=== PATIENT | female | born 1970 | race Caucasian/White ===

== ENCOUNTER → 2017-06-19 | Outpatient (CLI) | payer OTHER ==
[2017-06-19 17:54] LABS: BASO % 0.9 %; BASO ABS # 0.09 K/uL (0-0.2); EOS % 7.1 %; EOS ABS # 0.67 K/uL (0-0.5); HEMATOCRIT 35.5 % (37-47); HEMOGLOBIN 12.1 g/dL (12.0-16.0); IG# 0.02 K/uL (0.00-0.02); LYMPH % 33.5 %; LYMPH ABS # 3.18 K/uL (1.2-3.4); MEAN CELL VOLUME 93.9 fL (80-100); MEAN CORPUSCULAR HGB CONC 34.1 g/dl (32-36); MEAN PLATELET VOLUME 9.4 fL (7.4-10.4); MONO % 7.7 %; MONO ABS # 0.73 K/uL (0.11-0.59); NEUT % 50.6 %; NEUT ABS # 4.81 K/uL (1.4-6.5); PLATELET COUNT 380 K/uL (130-400); RED CELL DISTRIBUTION WIDTH CV 12.8 % (11.5-14.5); RED CELL DISTRIBUTION WIDTH SD 43.7 fL (36.4-46.3)
[2017-06-19 18:15] LABS: ALBUMIN 3.9 gm/dl (3.4-5.0); ALKALINE PHOSPHATASE 66 U/L (45-117); ALT/SGPT 18 U/L (12-78); AST/SGOT 17 U/L (15-37); TOTAL PROTEIN 6.9 gm/dl (6.4-8.2)
== END | disposition home or self-care (01) ==
LOC: C.LABPBG 14:08
PROVIDERS: ATTEND Family Medicine
DX: F11.20 Opioid dependence, uncomplicated (principal)

== ENCOUNTER → 2017-08-20 | Outpatient (CLI) | payer OTHER ==
[~2017-08-20] VITALS: Ht 162.6 cm; Wt 48.4 kg
[2017-08-20 16:32] VITALS: BP 156/88; PULSE 73; Ht 162.6 cm; Wt 48.4 kg
== END | disposition home or self-care (01) ==
LOC: C.NEUR 13:44
PROVIDERS: ATTEND Internal Medicine Pulmonary Disease
DX: G47.10 Hypersomnia, unspecified (principal); G47.8 Other sleep disorders; R44.2 Other hallucinations; G47.411 Narcolepsy with cataplexy

== ENCOUNTER 2024-04-26 09:48 | Observation (INO) ==
--- OUTSIDE RECORDS SUMMARY | 2024-04-26 09:55 | External Medical Summary | Continuity of Care Document ---
Author Name Unknown Organization [address] Address [address] [place] [address] [place], [place] [id number] Care Team Providers Care Gis Developer Name Role Phone VeronikaEdmundo Primary Care Physician [phone] [id number] Date(s): 02/14/24 - 02/14/[address] [place] [id number] [facility] [address] [place] [address] [phone] Encounter Diagnosis COPD exacerbation(Discharge Diagnosis) - 02/14/24 Discharge Disposition: Home or Self Care Attending Physician: Jeanne Paiz DO, Mariana Annette Referring Physician: Jeanne Paiz DO, Mariana Annette Allergies, Adverse Reactions, Alerts Substance Criticality Severity Reaction Reaction Severity Status ibuprofen swelling where ever pill touches- feels like acid Active penicillins swelling Active Paxil rash Active PROzac whole body swel ls swelling in throat Active BuSpar Heart stopped Active HYDROcodone rash swelling Acti ve Assessment and Plan Extracted from: Title:Office Visit Note Author:Jeanne Paiz DO, Mariana Annette Date:02/14/24 1.COPD exacerbation Will treat with azithromycin and prednisone for 5 days CXR ordered Continue inhalers Immunizations Given and Recorded Vaccine Date Status Refusal Reason influenza virus vaccine, inactivated 01/08/23 Give n influenza virus vaccine, inactivated 1 02/15/22 Gi cam influenza virus vaccine, inactivated 02/04/20 [place] rded influenza virus vaccine, inactivated 12/22/16 [place] rded pneumococcal 23-valent vaccine 02/04/20 Recorded tetanus/diphtheria/pertuss, acel (Tdap) 04/15/09 R ecorded 1Result Comment: diana aceves [facility] Medications acetaminophen 650 mg oral tablet, extended release Start: 01/13/24 3:39:00 PM EDT, 1 tab, PO, q8h, Disp# 50 tab, Refills: 4, PRN: as needed for pain, Pharmacy: [place] [id number] Start Date: 01/13/24 Stop Date: 03/23/24 Status: Ordered albuterol CFC free 90 mcg/inh MDI Start: 12/17/23 10:44:00 AM EDT, 2 puff, inhaled, q4h, Disp# 18 g, PRN: as needed for wheezing, Pharmacy: [facility] #[id number] Start Date: 12/17/23 Status: Ordered amLODIPine 5 mg oral tablet Start: 07/30/23 4:27:00 PM EDT, 1 tab, PO, Daily, Disp# 90 tab, Refills: 1, Pharmacy: [place] [id number] Start Date: 07/30/23 Stop Date: 01/26/24 Status: Ordered ARIPiprazole 10 mg oral tablet Start: 03/21/23 11:21:00 AM EST, 1 tab, PO, Daily Start Date: 03/21/23 Status: Ordered Atrovent MDI 17 mcg/inh HFA Start: 09/17/23 10:57:00 AM EDT, 2 puff, inhaled, q6h, Disp# 12.9 g, Refills: 5, Pharmacy: [place] [id number] Start Date: 09/17/23 Status: Ordered Azithromycin 5 Day Dose Pack 250 mg oral tablet Start: 02/14/24 1:53:00 PM EDT, See Instructions, Disp# 6 tab, as directed on package labeling, Pharmacy: [facility] #[id number] Start Date: 02/14/24 Status: Ordered biotin Start: 01/06/24 8:48:00 AM EDT Start Date: 01/06/24 Status: Ordered Centrum Start: 01/06/24 8:48:00 AM EDT Start Date: 01/06/24 Status: Ordered Cozaar 100 mg oral tablet Start: 01/13/24 3:39:00 PM EDT, 1 tab, PO, Daily, Disp# 90 tab, Refills: 1, Pharmacy: [place] [id number] Start Date: 01/13/24 Stop Date: 07/11/24 Status: Ordered D3 Start: 01/06/24 8:48:00 AM EDT Start Date: 01/06/24 Status: Ordered escitalopram 5 mg oral tablet Start: 08/16/23 8:10:00 AM EDT, 1 tab, PO, Daily Start Date: 08/16/23 Status: Ordered famotidine 20 mg oral tablet Start: 01/02/24 12:57:00 PM EDT, 2 tab, PO, Daily, Disp# 60 tab, Refills: 4, Pharmacy: [place] [id number] Start Date: 01/02/24 Status: Ordered ferrous sulfate 325 mg (65 mg elemental iron) oral tablet Start: 11/01/23 12:09:00 PM EDT, See Instructions, Disp# 30 tab, Refills: 5, TAKE 1 TABLET BY MOUTH EVERY DAY, Pharmacy: [facility] [id number] Start Date: 11/01/23 Status: Ordered fexofenadine 180 mg oral tablet Start: 05/17/23 4:24:00 PM EST, 1 tab, PO, Daily, Disp# 90 tab, Refills: 3, Pharmacy: [facility] [id number] Start Date: 05/17/23 Status: Ordered Flonase 50 mcg/inh nasal spray Start: 11/18/23 5:40:00 PM EDT, 1 spray, each nostril, Daily, Disp# 15.8 mL, Refills: 3, Pharmacy: [facility] [id number] Start Date: 11/18/23 Stop Date: 03/17/24 Status: Ordered folic acid 1 mg oral tablet Start: 04/02/22 4:41:00 PM EST, 1 tab, PO, Daily, Disp# 30 tab, Refills: 3, TAKE 1 TABLET (1 MG) BYMOUTH DAILY, Pharmacy: [facility]/pharmacy #[id number] Start Date: 04/02/22 Status: Ordered gabapentin 600 mg oral tablet Start: 12/12/23 1:42:00 PM EDT, 1 tab, PO, bid, Disp# 60 tab, Refills: 3, Pharmacy: [facility] [place] [id number] Start Date: 12/12/23 Stop Date: 04/10/24 Status: Ordered inhaler spacer Start: 04/20/22 7:53:00 PM EST, See Instructions, Disp# 1 each, Use as directed with albuterol inhaler, Pharmacy: [facility]/pharmacy #[id number] Start Date: 04/20/22 Status: Ordered lamoTRIgine 100 mg oral tablet Start: 11/08/23 11:22:00 AM EDT, 1 tab, PO, bid, Disp# 60 tab, Refills: 3, TAKE 1 TABLET BY MOUTH TWICE A DAY, Pharmacy: [place] [id number] Start Date: 11/08/23 Status: Ordered lidocaine 3% topical cream Start: 02/05/24 11:29:00 AM EDT, 1 appl, topical, bid, Disp# 28.35 g, Refills: 3, PRN: pain, Pharmacy: [place] [id number] Start Date: 02/05/24 Stop Date: 04/01/24 Status: Ordered Medical Marijuana Start: 02/15/22 8:59:00 AM EDT Start Date: 02/15/22 Status: Ordered methylphenidate Start: 02/15/22 8:44:00 AM EDT, 20 mg =, PO, qAM, Refills: 0 Start Date: 02/15/22 Status: Ordered methylphenidate 5 mg oral tablet Start: 02/15/22 8:44:00 AM EDT, 1 tab, PO, qPM, Refills: 0 Start Date: 02/15/22 Status: Ordered omeprazole 40 mg oral delayed release capsule Start: 01/22/17 1:34:00 PM EDT, 1 cap, PO, Daily, Disp# 90 cap, Refills: 3, fax to [phone] Start Date: 01/22/17 Status: Ordered [id number] oral powder for reconstitution Start: 01/10/24 3:25:00 PM EDT, See Instructions, Disp# 510 g, Refills: 3, DISSOLVE 17 GRAMS IN 8OZ OF LIQUID AND DRINK daily as needed for constipation, PRN: constipation, Pharmacy: [facility]/pharmacy #[id number] Start Date: 01/10/24 Status: Ordered predniSONE 20 mg oral tablet Start: 02/14/24 1:53:00 PM EDT, 1 tab, PO, Daily, Disp# 5 tab, [id number] Start Date: 02/14/24 Stop Date: 02/19/24 Status: Ordered Senna S 50 mg-8.6 mg oral tablet Start: 01/13/24 3:39:00 PM EDT, 2 tab, PO, qhs, Disp# 30 tab, Refills: 2, PRN: constipation, Pharmacy: [facility] [id number] Start Date: 01/13/24 Status: Ordered Suboxone 8 mg-2 mg sublingual tablet Start: 01/02/17 10:26:00 AM EDT, 1 tab, SL, Daily Start Date: 01/02/17 Status: Ordered sucralfate 1 g oral tablet Start: 11/01/23 12:09:00 PM EDT, 1 tab, PO, ac and hs, Disp# 120 tab, Refills: 2, Pharmacy: [facility] [id number] Start Date: 11/01/23 Stop Date: 01/30/24 Status: Ordered triamcinolone 0.025% topical ointment Start: 03/01/22 4:26:00 PM EST, 1 appl, topical, bid, Disp# 60 g, apply a thin film to affected area, Pharmacy: [facility]/pharmacy #[id number] Start Date: 03/01/22 Stop Date: 03/15/22 Status: Ordered Mental Status 02/14/24 Barriers to Learning one year None evide nt Mandatory Health Literacy Documentation Yes Health Literacy Communication Barriers N ever Primary Language Peruvian Problem List Condition Confirmation Course Effective Dates Status Health St atus Informant Bipolar disorder Confirmed Active CKD (chronic kidney disease) stage 2, GFR 60-89 ml/min Confirmed Active Generalized pain Confirmed Active Hx of migraine headaches Confirmed Active Hx of pulmonary emphysema Confirmed Active Hypertension Confirmed Active 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 Confirmed Active Peripheral neuropathy Confirmed Active Seizure disorder Confirmed Active Tobacco user Confirmed Active Diagnosis Diagnosis Type Effective Dates Health Status Clinical Service Informant COPD exacerbation Discharge Diagnosis 02/14/24 Non-Specified Procedures Procedure Date Related Diagnosis Body Site Status Colonoscopy 1 06/25/23 Completed US Carotid Duplex Bilateral 2 02/11/17 Completed CXR - Chest X-ray 3 12/24/16 Compl eted Mammogram - screening 4 10/10/16 C ompleted Mammogram - screening 5 12/11/13 C ompleted ULTRASOUND BREAST LIMITED 6 12/11/13 Completed Endoscopy 2013 Completed Mammogram - screening 2010 Com pleted Colonoscopy 8 04/15/09 Completed PAP test date 2007 Completed Carpal tunnel release Com pleted Hysterectomy and bilateral salpingo-oophorectomy sample Com pleted Leg fracture 9 Completed 1normal repeat in 10 years 2Minima lplaque formation. No hemodynamically significant stenosis found. 3normal 4The breasts are heterogeneously dense, which may obscure small masses. Normal breasts without evidence for malignancy. 5No mammographic evidence for malignancy. However, the patient reports palpable abnormality in the left breast for which sonography is recommended. Subsequent left breeast sonography reveals mildly prominent left axillary lymph nodes without suspicious features. The likely accounts for the palpable abnormality. 6Mildly prominent left axillary lymph nodes, without suspicious sonographic features, likely accounting for the palpable abnormality. No suspicious mammographic findings are present. 7WNL [id number] 9Right Leg Broken-Rods placed. Vital Signs Most recent to oldest [Reference Range]: 1 Patient Weight 51.2 kg (02/14/24 1:34 PM) Temperature [36.5-37.9 DegC] 37.1 DegC (02/14/24 1:34 PM) Respiratory Rate 20 br/min (02/14/24 1:34 PM) Blood Pressure 102/72mmHg (02/14/24 1:34 PM) Cuff Pulse Pressure 30 mmHg (02/14/24 1:34 PM) Social History Social History Type Response Tobacco Current every day sm oker, Cigarettes, 10 per day. Smoking Status Current every day li ght smoker Sex Female Sex Representation Female (finding) FCM Outpt Note * Jeanne Paiz DO, Mariana Annette: PERFORM Event Display: FCM Outpt Note Authored Date: Chief Complaint 3mo f/u, has cough/congestion, SOB/wheezing x 5 days. Wants flu inj if dr agrees d/t illness. History of Present Illness Initial visit was for chronic condition management but patient acutely ill. Went to a [employer] parade last week and started having symptoms 6 days ago, endorses coughandwheezing, orthopnea. Has been sleeping sitting up. States she gets coughing spells that cause her to vomit and black out at times. States her breathing is worse in the evening. using albuterol BID, states she is using atrovent every hour. Has been taking mucinex. she is on racheal and flonase states she also has night sweats, chills. Physical Exam Vitals & Measurements T:37.1C RR:20 BP:102/72 SpO2:95% WT:51.200kg(Dosing) WT:51.2kg PHQ2 Data(Data Documented on:02/14/2024 13:33) Emotional health assessment NEGATIVE General: _Alert and oriented, No acute distress, non-toxic HEENT: _ Normocephalic, TM clear, Nl gross hearing, moist oral mucosa, mild pharyngeal erythema_ Cardiovascular: _Normal rate, Regular rhythm, No murmur, No gallop. Respiratory: _Lungs are clear to auscultation, Respirations are non-labored, Breath sounds are equal Assessment/Plan 1.COPD exacerbation Will treat with azithromycin and prednisone for 5 days CXR ordered Continue inhalers Attestation Time spent: Pre-visit planning: _5 Rcpm-qs-ltxs visit: _21 Post-visit (orders/documentation/coordination of care):5 Total visit time: _31 Problem List/Past Medical History Ongoing Bipolar disorder CKD (chronic kidney disease) stage 2, GFR 60-89 ml/min Generalized pain Hx of migraine headaches Hx of pulmonary emphysema Hypertension Myxomatous mitral valve Opioid use disorder in remission Peripheral neuropathy Seizure disorder Tobacco user Procedure/Surgical History Colonoscopy| Service Date: 06/25/2023US Carotid Duplex Bilateral| Service Date: 02/11/2017CXR - Chest X-ray| Service Date: 12/24/2016Mammogram - screening| Service Date: 10/10/2016ULTRASOUND BREAST LIMITED| Service Date: 12/11/2013Mammogram - screening| Service Date: 12/11/2013Endoscopy| Service Date: 2013Mammogram - screening| Service Date: 2010Colonoscopy| Service Date: 04/15/2009PAP test date| Service Date: 2007Le fractureCarpal tunnel releaseHysterectomy and bilateral salpingo- oophorectomy sample Medications acetaminophen(acetaminophen 650 mg oral tablet, extended release), 650 mg= 1 tab, PO, q8h, PRN, 4 refills albuterol(albuterol CFC free 90 mcg/inh MDI), 2 puff, inhaled, q4h, PRN amLODIPine(amLODIPine 5 mg oral tablet), 5 mg= 1 tab, PO, Daily, 1 refills ARIPiprazole(ARIPiprazole 10 mg oral tablet), 10 mg= 1 tab, PO, Daily azithromycin(Azithromycin 5 Day Dose Pack 250 mg oral tablet), See Instructions biotin buprenorphine-naloxone(Suboxone 8 mg-2 mg sublingual tablet), 1 tab, SL, Daily cannabis(Medical Marijuana) cholecalciferol(D3) docusate-senna(Senna S 50 mg-8.6 mg oral tablet), 2 tab, PO, qhs, PRN, 2 refills escitalopram(escitalopram 5 mg oral tablet), 5 mg= 1 tab, PO, Daily famotidine(famotidine 20 mg oral tablet), 2 tab, PO, Daily ferrous sulfate(ferrous sulfate 325 mg (65 mg elemental iron) oral tablet), See Instructions, 5 refills fexofenadine(fexofenadine 180 mg oral tablet), 180 mg= 1 tab, PO, Daily, 3 refills fluticasone nasal(Flonase 50 mcg/inh nasal spray), 1 spray, each nostril, Daily, 3 refills folic acid(folic acid 1 mg oral tablet), 1 mg= 1 tab, PO, Daily, 3 refills gabapentin(gabapentin 600 mg oral tablet), 600 mg= 1 tab, PO, bid, 3 refills inhalation accessory(inhaler spacer), See Instructions ipratropium(Atrovent MDI 17 mcg/inh HFA), 2 puff, inhaled, q6h, 5 refills lamoTRIgine(lamoTRIgine 100 mg oral tablet), 100 mg= 1 tab, PO, bid, 3 refills lidocaine topical(lidocaine 3% topical cream), 1 appl, topical, bid, PRN, 3 refills losartan(Cozaar 100 mg oral tablet), 100 mg= 1 tab, PO, Daily, 1 refills methylphenidate(methylphenidate 5 mg oral tablet), 5 mg= 1 tab, PO, qPM methylphenidate, 20 mg, PO, qAM multivitamin with minerals(Centrum) omeprazole(omeprazole 40 mg oral delayed release capsule), 40 mg= 1 cap, PO, Daily, 3 refills polyethylene glycol 3350([id number] oral powder for reconstitution), See Instructions, PRN, 3 refills predniSONE(predniSONE 20 mg oral tablet), 20 mg= 1 tab, PO, Daily sucralfate(sucralfate 1 g oral tablet), 1 g= 1 tab, PO, ac and hs, 2 refills triamcinolone topical(triamcinolone 0.025% topical ointment), 1 appl, topical, bid Allergies BuSparHeart stopped HYDROcodonerash swelling PROzacwhole body swells, swelling in throat Paxilrash ibuprofenswelling where ever pill touches- feels like acid penicillinsswelling Social History Smoking Status Current every day light smoker Alcohol - Denies Alcohol Use Exercise Times per week:Daily Exercise type:Walking Tobacco Use:Current every day smoker Type:Cigarettes Tobacco use per day:10 Family History Alcohol abuse: PGF. Alcoholism: Father. Breast cancer: MGM. Diabetes mellitus type 1: MGM and PGF. Glaucoma: Mother. Heart attack: Father, MGM and PGM. Hypertension: Mother, Father, MGF, MGM, PGF and PGM. Stroke.: Father, MGF, MGM and PGF. Health Status Family Member(s) Immunizations Vaccine Date Status influenza virus vaccine, inactivated 01/08/2023 Given influenza virus vaccine, inactivated 02/15/2022 Given Comments : diana aceves cma pneumococcal 23-valent vaccine 02/04/2020 Recorded influenza virus vaccine, inactivated 02/04/2020 Recorded influenza virus vaccine, inactivated 12/22/2016 Recorded tetanus/diphtheria/pertuss, acel (Tdap) 04/15/2009 Recorded Recommendations Health Maintenance Pending(in the next year) OverDue Cervical Cancer Screening due07/14/10nd every 3year Breast Cancer Screening due10/11/18and every 731day Adult Influenza Vaccine due10/13/23and every 1year Due Adult COVID-19 Vaccination due02/14/24Unknown Frequency Adult Social Determinants of Health Screening due02/14/24Unknown Frequency Adult Tdap/Td Vaccine due02/14/24Unknown Frequency Pneumococcal Vaccine Adults and Adolescents with Chronic Illness due02/14/24One-time only Shingles Vaccine due02/14/24One-time only Satisfied(in the past 1 year) Satisfied Body Mass Index on01/06/24.Satisfied by ELEANOR Ibarra Lori Electronic Signature on File Electronically Reviewed/Signed by: Tara Paiz DO Author Signature Dt/Tm:02/14/2024 02:05 PM Department of Family Medicine [facility] Patient Care team information Care Team Personnel Name: MD Veronika, Edmundo Alonso Position: Physician - Internal Med Member Role: Primary Care Provider Address: [address] [place] [address] Care Team Related Persons Name: DUSTIN GASCA"
--- OUTSIDE RECORDS SUMMARY | 2024-04-26 09:55 | External Medical Summary | Continuity of Care Document ---
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 Role Phone Edmundo Banda Primary Care Physician [phone] [id number] Date(s): 01/06/24 - 01/06/[address] [place] [id number] [facility], [address] [place] [address] [phone] Encounter Diagnosis Body mass index [BMI] 19.9 or less, adult(Discharge Diagnosis) - 01/06/24 Sinusitis(Discharge Diagnosis) - 01/06/24 Penicillin allergy(Discharge Diagnosis) - 01/06/24 Right shoulder pain(Discharge Diagnosis) - 01/06/24 S/P shoulder surgery(Discharge Diagnosis) - 01/06/24 Discharge Disposition: Home or Self Care Attending Physician: DO Garcia Mehwish Referring Physician: DO Garcia Mehwish Allergies, Adverse Reactions, Alerts Substance Criticality Severity Reaction Reaction Severity Status ibuprofen swelling where ever pill touches- feels like acid Active penicillins swelling Active Paxil rash Active PROzac whole body swel ls swelling in throat Active HYDROcodone rash swelling Acti ve BuSpar Heart stopped Active Assessment and Plan Extracted from: Title:Office Visit Note Author:DO Garcia Me hwish Date:01/06/24 1.Sinusitis 2.Penicillin allergy Patient was previously prescribed doxycycline, though did not tolerated due to GI discomfort, given her penicillin allergy will treat with levofloxacin 750 mg daily for 7 days. She was advised tofollow-up if she is not able to tolerate this antibiotic and it was emphasized that she should complete the entire courseunless she has side effects. Additionally, recommend that aoycsnezqg-cxc-wldrczz treatments including saline spray,Mucinex/DayQuilas well as her Flonase. Okay for her to continue taking acetaminophen. 3.Right shoulder pain 4.S/P shoulder surgery Acute on chronic,worsening of her right shoulder painwith a history of 3 previous surgeries reportedly. Previous records were reviewed, no recentnotes with PCP included discussion of her shoulder discomfort. I have provided her with a referral to [facility] as requested. 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 Medications acetaminophen 650 mg oral tablet, extended release Start: 11/01/23 12:09:00 PM EDT, 1 tab, PO, q8h, Disp# 50 tab, Refills: 4, PRN: as needed for pain, Pharmacy: [facility] [id number] Start Date: 11/01/23 Stop Date: 01/10/24 Status: Ordered albuterol CFC free 90 mcg/inh MDI Start: 12/17/23 10:44:00 AM EDT, 2 puff, inhaled, q4h, Disp# 18 g, PRN: as needed for wheezing, Pharmacy: [facility]/pharmacy #[id number] Start Date: 12/17/23 Status: Ordered amLODIPine 5 mg oral tablet Start: 07/30/23 4:27:00 PM EDT, 1 tab, PO, Daily, Disp# 90 tab, Refills: 1, Pharmacy: [facility] [id number] Start Date: 07/30/23 Stop Date: 01/26/24 Status: Ordered ARIPiprazole 10 mg oral tablet Start: 03/21/23 11:21:00 AM EST, 1 tab, PO, Daily Start Date: 03/21/23 Status: Ordered Atrovent MDI 17 mcg/inh HFA Start: 09/17/23 10:57:00 AM EDT, 2 puff, inhaled, q6h, Disp# 12.9 g, Refills: 5, Pharmacy: [place] [id number] Start Date: 09/17/23 Status: Ordered biotin Start: 01/06/24 8:48:00 AM EDT Start Date: 01/06/24 Status: Ordered Centrum Start: 01/06/24 8:48:00 AM EDT Start Date: 01/06/24 Status: Ordered Cozaar 100 mg oral tablet Start: 07/30/23 4:27:00 PM EDT, 1 tab, PO, Daily, Disp# 90 tab, Refills: 1, Pharmacy: [place] [id number] Start Date: 07/30/23 Stop Date: 01/26/24 Status: Ordered D3 Start: 01/06/24 8:48:00 AM EDT Start Date: 01/06/24 Status: Ordered escitalopram 5 mg oral tablet Start: 08/16/23 8:10:00 AM EDT, 1 tab, PO, Daily Start Date: 08/16/23 Status: Ordered famotidine 20 mg oral tablet Start: 01/02/24 12:57:00 PM EDT, 2 tab, PO, Daily, Disp# 60 tab, Refills: 4, Pharmacy: [place] [id number] Start Date: 01/02/24 Status: Ordered ferrous sulfate 325 mg (65 mg elemental iron) oral tablet Start: 11/01/23 12:09:00 PM EDT, See Instructions, Disp# 30 tab, Refills: 5, TAKE 1 TABLET BY MOUTH EVERY DAY, Pharmacy: [place] [id number] Start Date: 11/01/23 Status: Ordered fexofenadine 180 mg oral tablet Start: 05/17/23 4:24:00 PM EST, 1 tab, PO, Daily, Disp# 90 tab, Refills: 3, Pharmacy: [place] [id number] Start Date: 05/17/23 Status: Ordered fidaxomicin 200 mg oral tablet Start: 08/27/23 8:10:00 AM EDT, 1 tab, PO, bid, Disp# 20 tab, Refills: 0, Pharmacy: [facility]/pharmacy #[id number] Start Date: 08/27/23 Stop Date: 09/06/23 Status: Ordered Flonase 50 mcg/inh nasal spray Start: 11/18/23 5:40:00 PM EDT, 1 spray, each nostril, Daily, Disp# 15.8 mL, Refills: 3, Pharmacy: [place] [id number] Start Date: 11/18/23 Stop Date: 03/17/24 Status: Ordered folic acid 1 mg oral tablet Start: 04/02/22 4:41:00 PM EST, 1 tab, PO, Daily, Disp# 30 tab, Refills: 3, TAKE 1 TABLET (1 MG) BYMOUTH DAILY, [id number] Start Date: 04/02/22 Status: Ordered gabapentin 600 mg oral tablet Start: 12/12/23 1:42:00 PM EDT, 1 tab, PO, bid, Disp# 60 tab, Refills: 3, Pharmacy: [place] [id number] Start Date: 12/12/23 Stop Date: 04/10/24 Status: Ordered inhaler spacer Start: 04/20/22 7:53:00 PM EST, See Instructions, Disp# 1 each, Use as directed with albuterol inhaler, [id number] Start Date: 04/20/22 Status: Ordered lamoTRIgine 100 mg oral tablet Start: 11/08/23 11:22:00 AM EDT, 1 tab, PO, bid, Disp# 60 tab, Refills: 3, TAKE 1 TABLET BY MOUTH TWICE A DAY, Pharmacy: [facility] [id number] Start Date: 11/08/23 Status: Ordered levoFLOXacin 750 mg oral tablet Start: 01/06/24 9:31:00 AM EDT, 1 tab, PO, q24h, Disp# 7, Refills: 0, [id number] Start Date: 01/06/24 Stop Date: 01/13/24 Status: Ordered lidocaine 3% topical cream Start: 09/23/23 2:29:00 PM EDT, 1 appl, topical, bid, Disp# 28.35 g, Refills: 3, PRN: pain, Pharmacy: [facility] [id number] Start Date: 09/23/23 Stop Date: 11/18/23 Status: Ordered Medical Marijuana Start: 02/15/22 8:59:00 AM EDT Start Date: 02/15/22 Status: Ordered methocarbamol 750 mg oral tablet Start: 02/15/22 8:58:00 AM EDT Start Date: 02/15/22 Status: Ordered methylphenidate Start: 02/15/22 8:44:00 AM EDT, 20 mg =, PO, qAM, Refills: 0 Start Date: 02/15/22 Status: Ordered methylphenidate 5 mg oral tablet Start: 02/15/22 8:44:00 AM EDT, 1 tab, PO, qPM, Refills: 0 Start Date: 02/15/22 Status: Ordered mupirocin 2% topical ointment Start: 02/15/22 8:58:00 AM EDT, 1 appl, topical, tid Start Date: 02/15/22 Status: Ordered omeprazole 40 mg oral delayed release capsule Start: 01/22/17 1:34:00 PM EDT, 1 cap, PO, Daily, Disp# 90 cap, Refills: 3, fax to [phone] Start Date: 01/22/17 Status: Ordered [id number] oral powder for reconstitution Start: 11/18/23 5:40:00 PM EDT, See Instructions, Disp# 238 g, Refills: 3, DISSOLVE 17 GRAMS IN 8OZ OF LIQUID AND DRINK daily as needed for constipation, PRN: constipation, Pharmacy: [facility] [id number] Start Date: 11/18/23 Status: Ordered permethrin 5% topical cream Start: 04/10/22 8:43:00 AM EST, See Instructions, Disp# 60 g, Refills: 0, to skin head to feet, remove by washing after 8 to 14 hours, Pharmacy: [facility]/pharmacy #[id number] Start Date: 04/10/22 Status: Ordered predniSONE 10 mg oral tablet Start: 12/17/23 10:39:00 AM EDT, 40 mg =, PO, Daily, Disp# 20 tab, Pharmacy: [facility]/pharmacy #[id number] Start Date: 12/17/23 Stop Date: 12/22/23 Status: Ordered Senna S 50 mg-8.6 mg oral tablet Start: 11/01/23 12:09:00 PM EDT, 2 tab, PO, qhs, Disp# 30 tab, Refills: 2, PRN: constipation, Pharmacy: [facility] [id number] Start Date: 11/01/23 Status: Ordered Suboxone 8 mg-2 mg sublingual tablet Start: 01/02/17 10:26:00 AM EDT, 1 tab, SL, Daily Start Date: 01/02/17 Status: Ordered sucralfate 1 g oral tablet Start: 11/01/23 12:09:00 PM EDT, 1 tab, PO, ac and hs, Disp# 120 tab, Refills: 2, Pharmacy: [place] [id number] Start Date: 11/01/23 Stop Date: 01/30/24 Status: Ordered triamcinolone 0.025% topical ointment Start: 03/01/22 4:26:00 PM EST, 1 appl, topical, bid, Disp# 60 g, apply a thin film to affected area, Pharmacy: [facility]/pharmacy #[id number] Start Date: 03/01/22 Stop Date: 03/15/22 Status: Ordered vancomycin oral capsule 125 mg Start: 08/27/23 10:14:00 AM EDT, 1 cap, PO, q6h, Disp# 40, Pharmacy: [facility]/pharmacy #[id number] Start Date: 08/27/23 Stop Date: 09/06/23 Status: Ordered Vitamin B12 Start: 01/06/24 8:48:00 AM EDT Start Date: 01/06/24 Status: Ordered Vitamin C Start: 01/06/24 8:48:00 AM EDT Start Date: 01/06/24 Status: Ordered Mental Status 01/06/24 Barriers to Learning one year None evide nt Mandatory Health Literacy Documentation Yes Health Literacy Communication Barriers N ever Primary Language Israeli Problem List Condition Confirmation Course Effective Dates [...] Effective Dates Health Status Clinical Service Informant Body mass index [BMI] 19.9 or less, adult Discharge Diagnosis 01/06/24 Non-Specified Right shoulder pain Discharge Diagnosis 01/06/24 Non-Specified S/P shoulder surgery Discharge Diagnosis 01/06/24 Non-Specified Sinusitis Discharge Diagnosis 01/06/24 Non-Specified Penicillin allergy Discharge Diagnosis 01/06/24 Non-Specified Procedures Procedure Date Related Diagnosis Body Site Status Colonoscopy 1 06/25/23 Completed US Carotid Duplex Bilateral 2 02/11/17 Completed CXR - Chest X-ray 3 12/24/16 Compl eted Mammogram - screening 4 10/10/16 C ompleted Mammogram - screening 5 12/11/13 C ompleted ULTRASOUND BREAST LIMITED 6 12/11/13 Completed Endoscopy 7 2013 Completed Mammogram - screening 2010 Com [...] Most recent to oldest [Reference Range]: 1 Height 164.0 cm (01/06/24 8:50 AM) Patient Weight 51.4 kg (01/06/24 8:50 AM) Body Mass Index 19.11 kg/m2 (01/06/24 8:50 AM) Temperature [36.5-37.9 DegC] 37.0 DegC (01/06/24 8:50 AM) Respiratory Rate 20 br/min (01/06/24 8:50 AM) Blood Pressure 92/52mmHg (01/06/24 8:50 AM) Cuff Pulse Pressure 40 mmHg (01/06/24 8:50 AM) Social History Social History Type Response Tobacco Current every day sm oker, Cigarettes, 10 per day. Smoking Status Current every day li ght smoker Sex Female Sex Representation Female (finding) FCM Outpt Note * DO Garcia Mehwish: PERFORM Event Display: FCM Outpt Note Authored Date: [id number] Chief Complaint Sinus h/a, cough, SOB/wheezing x ~1mo. COVID test 2 days ago neg. History of Present Illness 53yo PMH COPD, recently seen for COPD exacerbation and sinus infection, presents for acute visit today for ongoing sinus symptoms. 1 month of sinus infection symptoms Sinus pressure pain, chills, night sweats, congestion, productive cough, SOB- with exertion Since last visit- no change in BM, some abdominal pain, normal appetite Says she took 3 days of doxycycline- but then developed nausea, vomiting and diarrhea and had a presyncopal/syncopal episode. NO longer coughing green and yellow stuff. TakingTylenol, vitamin C, vitamin D, women'sMV, vit B12, vitamin E Was using mucinexand dayquilbut stopped when she ran out. Also requestingreferral to orthopedic surgery. She notes that her PCP was supposed to put a referral for her and thiswhen I discussed itin the past. She notes her records have already beensent to [facility]. She has had previousright shoulder surgery x 3with ongoing discomfort and pain. Physical Exam Vitals & Measurements T:37.0C RR:20 BP:92/52 SpO2:96% HT:164.0cm WT:51.400kg(Dosing) WT:51.4kg BMI:19.11 PHQ2 Data(Data Documented on:01/06/2024 08:49) Emotional health assessment NEGATIVE GENERAL APPEARANCE: The patient is alert, oriented and in no acute distress. VITALS: As above. HEENT: Head is normocephalic/atraumatic. TMs clear bilaterally- mild cerumen in canal. Oropharynx with no tonsillar swelling or exudates. Nasal turbinates inflamed.SheTTPover bilateral frontal and maxillary sinuses. NECK: Supple, +small, right anterior cervical lymph node CARDIOVASCULAR: Regular rate and rhythm, no m/r/g. LUNGS: Clear to auscultation bilaterally. No wheezes/rales/rhonchi. Assessment/Plan 1.Sinusitis 2.Penicillin allergy Patient was previously prescribed doxycycline, though did not tolerated due to GI discomfort, given her penicillin allergy will treat with levofloxacin 750 mg daily for 7 days. She was advised tofollow-up if she is not able to tolerate this antibiotic and it was emphasized that she should complete the entire courseunless she has side effects. Additionally, recommend that mcltnntrkv-epo-qwkzbym treatments including saline spray,Mucinex/DayQuilas well as her Flonase. Okay for her to continue taking acetaminophen. 3.Right shoulder pain 4.S/P shoulder surgery Acute on chronic,worsening of her right shoulder painwith a history of 3 previous surgeries reportedly. Previous records were reviewed, no recentnotes with PCP included discussion of her shoulder discomfort. I have provided her with a referral to [facility] as requested. Problem List/Past Medical History Ongoing Bipolar disorder [...] tablet), 10 mg= 1 tab, PO, Daily ascorbic acid(Vitamin C) biotin buprenorphine-naloxone(Suboxone 8 mg-2 mg sublingual tablet), 1 tab, SL, Daily cannabis(Medical Marijuana) cholecalciferol(D3) cyanocobalamin(Vitamin B12) docusate-senna(Senna S 50 mg-8.6 mg oral tablet), 2 tab, PO, qhs, PRN, 2 refills escitalopram(escitalopram 5 mg oral tablet), 5 mg= 1 tab, PO, Daily famotidine(famotidine 20 mg oral tablet), 2 tab, PO, Daily ferrous sulfate(ferrous sulfate 325 mg (65 mg elemental iron) oral tablet), See Instructions, 5 refills fexofenadine(fexofenadine 180 mg oral tablet), 180 mg= 1 tab, PO, Daily, 3 refills fidaxomicin(fidaxomicin 200 mg oral tablet), 200 mg= 1 tab, PO, bid fluticasone nasal(Flonase 50 mcg/inh nasal spray), 1 [...] mg= 1 tab, PO, bid, 3 refills levoFLOXacin(levoFLOXacin 750 mg oral tablet), 750 mg= 1 tab, PO, q24h lidocaine topical(lidocaine 3% topical cream), 1 appl, topical, bid, PRN, 3 refills losartan(Cozaar 100 mg oral tablet), 100 mg= 1 tab, PO, Daily, 1 refills methocarbamol(methocarbamol 750 mg oral tablet) methylphenidate(methylphenidate 5 mg oral tablet), 5 mg= 1 tab, PO, qPM methylphenidate, 20 mg, PO, qAM multivitamin with minerals(Centrum) mupirocin topical(mupirocin 2% topical ointment), 1 appl, topical, tid omeprazole(omeprazole 40 mg oral delayed release capsule), 40 mg= 1 cap, PO, Daily, 3 refills permethrin topical(permethrin 5% topical cream), See Instructions polyethylene glycol 3350([id number] oral powder for reconstitution), See Instructions, PRN, 3 refills predniSONE(predniSONE 10 mg oral tablet), 40 mg, PO, Daily sucralfate(sucralfate 1 g oral tablet), 1 g= 1 tab, PO, ac and hs, 2 refills triamcinolone topical(triamcinolone 0.025% topical ointment), 1 appl, topical, bid vancomycin(vancomycin oral capsule 125 mg), 125 mg= 1 cap, PO, q6h Allergies BuSparHeart stopped HYDROcodonerash swelling PROzacwhole body [...] inactivated 02/15/2022 Given Comments : diana aceves [facility] pneumococcal 23-valent vaccine 02/04/2020 Recorded influenza virus vaccine, inactivated 02/04/2020 Recorded influenza virus vaccine, inactivated 12/22/2016 Recorded tetanus/diphtheria/pertuss, acel (Tdap) 04/15/2009 Recorded Recommendations Health Maintenance Pending(in the next year) OverDue Cervical Cancer Screening due07/14/10nd every 3year Breast Cancer Screening due10/11/18and every 731day Adult Influenza Vaccine due10/13/23and every 1year Due Adult COVID-19 Vaccination due01/06/24Unknown Frequency Adult Social Determinants of Health Screening due01/06/24Unknown Frequency Adult Tdap/Td Vaccine due01/06/24Unknown Frequency Pneumococcal Vaccine Adults and Adolescents with Chronic Illness due01/06/24One-time only Shingles Vaccine due01/06/24One-time only Satisfied(in the past 1 year) Satisfied Adult Influenza Vaccine on01/08/23.Satisfied by LISBETH Kiser Gillian Body Mass Index on01/06/24.Satisfied by ELEANOR Ibarra, Antonia Electronic Signature on File CC: Edmundo Banda MD [address] [place] [id number] Electronically Reviewed/Signed by: Christi Garcia DO Author Signature Dt/Tm:01/06/2024 09:43 AM Division of Sports Medicine MM Patient Care team information Care Team Personnel Name: MD Veronika, Edmundo Alonso Position: Physician - Internal Med Member Role: Primary Care Provider Address: [address] [place] [id number] [place] Care Team Related Persons Name: DUSTIN GASCA"
[2024-04-26] MEDS: OPTIRAY 320 125ml IV ONE (10:15)
--- NOTE | 2024-04-26 10:16 | Emergency Department Note ---
Impression & Plan Syncope, Nausea and vomiting, Anemia, Difficulty with speech ED Provider Note NAME: WENDY GASCA AGE: 53 SEX: F : 1970 ARRIVES VIA: Walk-In INFORMANT: Patient, ED PROVIDER(S): Ralph Rivas MD CHIEF COMPLAINT: Change in behavior, speech difficulty MEDICAL DECISION MAKING: Patient presents due to concern for change in behavior. At the bedside the patient has an unremarkable neurologic exam. CT head CT angiography's were ordered empirically due to code stroke initiation. Case not initially discussed with the telestroke neurologist as the patient had resolution of symptoms by the time of my examination. Patient's blood work shows a normal white count mild anemia hemoglobin 1.6 with a normal platelet count kidney function is unremarkable. Patient's CT head and CT angiography head and neck are negative. Chest x-ray negative. The patient did have an MRI that was ordered. Given the patient's symptoms I did speak with the on-call hospital service Corrina Wylie PA-C and the patient was admitted by Dr. Prado. Discussion w/ other healthcare providers: Corrina Wylie PA-C and Dr. Prado inpatient medicine service Prior /Outside records reviewed: None Differential diagnosis: Infection, dehydration, metabolic abnormality, hypo/hyperglycemia, electrolyte imbalance, anemia, UTI, pneumonia, thyroid dysfunction among others were considered. Diagnostics, as interpreted by me: ECG: Normal sinus rhythm, rate of 70, normal intervals normal axis no ST elevations. Cardiac monitoring: An order was placed for continuous cardiac monitoring. The monitor shows a rate of 67 with sinus rhythm. Patient was placed on pulse oximetry Medical decision rules: None Imaging studies: I informally interpreted the patient's chest x-ray does not show obvious pneumonia or pneumothorax with formal report to follow. HPI: Patient presents due to concern for change in behavior. The patient reportedly was up this morning Patient reportedly got up this morning around 6 AM was not feeling very well. Patient states that she went to go lay down started feel very warm reportedly lost consciousness. The patient denies any tongue biting or incontinence but when she woke up she then subsequently to the bathroom and vomited. Patient states that she may have passed out again thereafter. Patient's partner then woke up and found her to be confused tearful and was not making sense using inappropriate words and unable to put a sentence together. She states that this is around 8 AM this morning. Patient does have a prior history of seizures but is not had a seizure during the time that the partner has been with the patient. Patient states that she has had some all of her body tingling. No reported falls or trauma. The patient has not used any illicit drugs in some time and is on buprenorphine which is a chronic medication for the patient. No changes. PAST MEDICAL HISTORY: See Below PAST SURGICAL HISTORY: See Below SOCIAL HISTORY: See Below HOME MEDICATIONS: See Below ALLERGIES: See Below VITALS: See Below PHYSICAL EXAMINATION: GENERAL: NAD, non-toxic. Wearing glasses. EYE EXAM: Normal conjunctiva. PERRL, no anisocoria and EOM's grossly intact w/o pain. OROPHARYNX: Moist mucus membranes, grossly normal dentition. NECK: Trachea midline, no stridor. Supple, no nuchal rigidity, no adenopathy, non-tender. No signs of meningismus. FROM of the neck with good chin to chest and neck extension. LUNGS: Clear to auscultation. Normal chest wall mechanics. HEART: NSR, no MRG. ABDOMEN: Abdomen soft, non-tender, no masses, no rebound or guarding. BACK: No CVA TTP. SKIN: No rashes and no bruising. UPPER EXTREMITIES: Upper extremities are grossly normal. LOWER EXTREMITIES: Grossly normal, no edema. NEURO EXAM: A&O x3, cranial nerves II-XII grossly intact, normal speech, moves all 4 extremities. Good [id number], no drift and no sensory deficits. Past Med/Surg History Problem List (Updated 04/30/24 @ 00:03 by Ralph Rivas MD) Difficulty with speech (Acute) Anemia (Acute) Crescendo angina Mobitz I Mobitz (type) II atrioventricular block Nausea and vomiting (Acute) Syncope (Acute) Encounter for pre-operative examination Circadian rhythm sleep disorder, advanced sleep phase type GERD (gastroesophageal reflux disease) Lesion of vocal cord Dysphagia No significant past surgical history Mitral regurgitation mild to moderate Bipolar 1 disorder (Acute) Cataplexy Hypnopompic hallucination Sleep paralysis Hypertension Excessive somnolence disorder COPD (chronic obstructive pulmonary disease) Medical History GERD (gastroesophageal reflux disease) Medical marijuana use History of narcotic addiction clean since 2017 CKD (chronic kidney disease) stage 2, GFR 60-89 ml/min Hx-TIA (transient ischemic attack) states passed out, suspected TIA- ~2017, no deficits Hypercholesterolemia Seizures last seizure -2019; follows w/ Dr Coleman Bipolar disorder Surgical History History of esophagogastroduodenoscopy (EGD) Hx of colonoscopy Hx of rotator cuff surgery right- x 3 History of carpal tunnel release of both wrists Hx of hysterectomy Hx of tubal ligation Family History Family/Other Seizure Social History Smoking Status: Light tobacco smoker Tobacco Type: Cigarettes Age Started Using Tobacco: 10; Cigarettes Per Day: 10; Second Hand Exposure: Yes; Do You Dip or Chew Tobacco: No; Hx Alcohol Use: No Hx Substance Use: Yes Last Used Substance: Days (ago) Last Used Substance Other:: daily use; last narcotics use was 2017 Substance Use Type Other:: medical marijuana Preferred Language: Hungarian Communication Ability: Effective Densitometer Reader Required: No Beliefs That Will Affect Care: None marital status: Current Living Situation: Alone Feels Safe at Home: Yes Gender Identity: Female Assistive Devices: Cane Allergies Allergies Allergy/AdvReac Type Severity Reaction Status Date / Time orange Allergy Severe Difficulty Unverified 04/26/24 11:51 Breathing/Rash tomato Allergy Severe Difficulty Unverified 04/26/24 11:51 Breathing/Rash amoxicillin Allergy Unknown Rash Verified 04/26/24 11:51 buspirone Allergy Unknown Cardiac Verified 04/26/24 11:51 arrest fluoxetine Allergy Unknown Hives Verified 04/26/24 11:51 hydrocodone Allergy Unknown Hives Verified 04/26/24 11:51 paroxetine Allergy Unknown SLEEPING, Verified 04/26/24 11:51 HIVES Penicillins Allergy Unknown HIVE, Verified 04/26/24 11:51 VOMITING Home Meds Home Medications Medication Instructions Recorded Confirmed ferrous sulfate 325 mg (65 mg 325 mg PO QAM 06/24/20 04/26/24 iron) tablet folic acid 1 mg tablet 1 mg PO QAM #30 tabs 06/24/20 04/26/24 buprenorphine 8 mg-naloxone 2 mg 1 tab sublingual BID 02/09/22 04/26/24 sublingual tablet lamotrigine 100 mg tablet 100 mg PO BID 04/17/22 04/26/24 Medical Marijuana 1 dose PO UD PRN Pain 11/29/22 04/26/24 acetaminophen 650 mg 650 mg PO DAILY PRN Pain 04/26/24 04/26/24 tablet,extended release amlodipine 5 mg tablet 5 mg PO HS 04/26/24 04/26/24 aripiprazole 10 mg tablet 10 mg PO QAM 04/26/24 04/26/24 escitalopram oxalate 10 mg tablet 10 mg PO QAM 04/26/24 04/26/24 fexofenadine 180 mg tablet 180 mg PO QAM 04/26/24 04/26/24 fluticasone propionate 50 1 spray intranasal BID 04/26/24 04/26/24 mcg/actuation nasal spray,suspension gabapentin 600 mg tablet 600 mg PO BID 04/26/24 04/26/24 ipratropium bromide 17 1 inh inhalation DAILY 04/26/24 04/26/24 mcg/actuation HFA aerosol inhaler (Atrovent HFA) lidocaine HCl 3 % topical cream 1 applic topical DAILY PRN Unknown 04/26/24 04/26/24 losartan 100 mg tablet 100 mg PO QAM 04/26/24 04/26/24 mirtazapine 15 mg tablet 15 mg PO HS 04/26/24 04/26/24 polyethylene glycol 3350 17 17 g PO DAILY 04/26/24 04/26/24 gram/dose oral powder (Gavilax) sennosides 8.6 mg-docusate sodium 1 tab-cap PO HS 04/26/24 04/26/24 50 mg tablet (Stimulant Laxative Plus) sucralfate 1 gram tablet 1 g PO ACHS 04/26/24 04/26/24 Previous Rx's Medication Instructions Recorded famotidine 20 mg tablet 20 mg PO BID #20 tabs 04/17/22 methylphenidate HCl 20 mg 20 mg PO QAM #30 tabs 04/13/24 tablet,extended release methylphenidate HCl 5 mg tablet 5 mg PO QPM #30 tabs 04/13/24 pantoprazole 40 mg tablet,delayed 40 mg PO HS gerd #30 tabs 04/27/24 release (Protonix) aspirin 81 mg tablet,delayed 81 mg PO QAM #30 tabs 04/28/24 release cyanocobalamin (vitamin B-12) 500 500 mcg PO QAM #30 tabs 04/28/24 mcg tablet Results & Data (ED) Vital Signs Vital Signs - 24 hr 04/26/24 09:57 Temperature 36.6 C Temperature Source Temporal Artery Scan Pulse Rate 76 Respiratory Rate 20 Respiratory Effort / Characteristics Non-Labored Spontaneous Respiratory Depth Normal Respiratory Pattern Regular Blood Pressure 124/79 Blood Pressure Mean 94 Pulse Oximetry 98 Oxygen Delivery Method Room Air Sepsis Recent Fever Within 48 Hours No Sepsis New/Unexplained Change in Mental Status N/A Sepsis Action Taken by Nursing No Action Required Home Medications Current Medication List: was personally reviewed by me Laboratory Data Attestation: I reviewed the patient's lab results. 04/27/24 05:26 04/28/24 06:05 Lab Results 04/26/24 04/26/24 Range/Units 10:17 10:23 WBC 7.37 (4.8-10.8) K/ul RBC 3.72 L (4.20-5.40) M/uL Hgb 11.6 L (12.0-16.0) g/dl Hct 34.2 L (37.0-47.0) % MCV 91.9 (80.0-100.0) fL MCH 31.2 (25.0-34.0) pg MCHC 33.9 (32.0-36.0) g/dL RDW Std Deviation 40.6 (36.4-46.3) fL RDW Coeff of [place] 12.0 (11.5-14.5) % Plt Count 221 (130-400) K/uL MPV 8.4 L (9.4-12.4) fL Immature Gran % (Auto) 0.3 % Neut % (Auto) 62.9 % Lymph % (Auto) 24.6 % [place] % (Auto) 7.7 % Eos % (Auto) 3.7 % Baso % (Auto) 0.8 % Neut # (Auto) 4.64 (1.40-6.50) K/uL Lymph # (Auto) 1.81 (1.20-3.40) K/uL [place] # (Auto) 0.57 (0.11-0.59) K/uL Eos # (Auto) 0.27 (0.00-0.50) K/uL Baso # (Auto) 0.06 (0.00-0.20) K/uL Immature Gran # (Auto) 0.02 (0.01-0.20) K/uL PT 11.1 (9.0-12.0) Seconds INR 1.0 (0.9-1.1) APTT 27 (21-31) Seconds PTT Ratio 1.0 Sodium 132 L (136-145) mmol/L Potassium 4.2 (3.5-5.1) mmol/L Chloride 100 (98-107) mmol/L Carbon Dioxide 31 (21-32) mmol/L Anion Gap 1 L (3-11) BUN 17 (6-23) mg/dl Creatinine 0.89 (0.6-1.2) mg/dl Est Cr Clr Drug Dosing 61.3 ml/min eGFR 77.47 BUN/Creatinine Ratio 19.1 (10-20) Glucose 90 (70-99(Fasting)) mg/dl POC Glucose 95 (70-99) mg/dl Calcium 8.3 L (8.6-10.3) mg/dl Magnesium 1.8 (1.7-2.4) mg/dl Total Bilirubin 0.3 (0.2-1.0) mg/dl AST 11 L (13-39) U/L ALT 6 L (7-52) U/L Alkaline Phosphatase 70 (34-104) U/L Troponin I High Sens 2.5 (0-14) pg/ml Total Protein 5.4 L (6.0-8.3) gm/dl Albumin 3.3 L (3.4-5.0) gm/dl Globulin 2.1 L (2.5-4.0) gm/dl Albumin/Globulin Ratio 1.6 (0.9-2) Lyme Disease Screen Negative (Negative) Administered Medications Discontinued Medications Acetaminophen (Acetaminophen 325 Mg Tab) 650 mg PO DAILY PRN PRN Reason: Pain Last Admin: 04/27/24 21:21 Dose: 650 mg Documented By: [id number] Admin: 04/26/24 22:17 Dose: 650 mg Documented By: EFK [facility]ip[facility] ([facility] 10 Mg Tab) [facility] [place]: 05/27/24 08:59 Last Admin: 04/28/24 08:15 Dose: 10 mg Documented By: Admin: 04/27/24 09:25 Dose: 10 mg Documented By: JOCELIN Aspirin (Aspirin 325 Mg Ectab) 325 mg PO ONE ONE Stop: 04/27/24 19:09 Last Admin: 04/27/24 21:22 Dose: 325 mg Documented By: [id number] Aspirin (Aspirin 81 Mg Ectab) [facility] [place]: 05/28/24 08:59 Last Admin: 04/28/24 08:15 Dose: 81 mg Documented By: MICKIE Buprenorphine/Naloxone (Buprenorphine/Naloxone 8/2 Mg Tab) 1 tab SL BID [facility] Stop: 05/26/24 20:59 Last Admin: 04/28/24 09:15 Dose: 1 tab Documented By: Admin: 04/27/24 21:20 Dose: 1 tab Documented By: [id number] Admin: 04/27/24 09:26 Dose: 1 tab Documented By: Admin: 04/26/24 22:14 Dose: 1 tab Documented By: KEEGAN Cyanocobalamin (Cyanocobalamin (B-12) 500 Mcg Tablet) 500 [facility] [place]: 05/28/24 08:59 Last Admin: 04/28/24 08:15 Dose: 500 mcg Documented By: MICKIE Escitalopram Oxalate (Escitalopram Oxalate 10 Mg Tab) [facility] [place]: 05/27/24 08:59 Last Admin: 04/28/24 08:15 Dose: 10 mg Documented By: Admin: 04/27/24 09:25 Dose: 10 mg Documented By: JOCELIN Famotidine (Famotidine 20 Mg Tab) 20 mg PO BID [facility] Stop: 05/26/24 20:59 Last Admin: 04/28/24 08:15 Dose: 20 mg Documented By: Admin: 04/27/24 21:23 Dose: 20 mg Documented By: [id number] Admin: 04/27/24 09:25 Dose: 20 mg Documented By: Admin: 04/26/24 22:04 Dose: 20 mg Documented By: KEEGAN Fentanyl Citrate (Fentanyl Citrate Pf 100 Mcg/2 Ml Vial) Confirm Administered Dose 100 mcg .ROUTE .STK-MED ONE Stop: 04/28/24 13:24 Last Increment: 04/28/24 14:47 Dose: 50 mcg Documented By: SAVANNA Fexofenadine HCl (Fexofenadine Hcl 180 Mg Tab) 180 mg PO QA [facility] Stop: 05/27/24 08:59 Last Admin: 04/28/24 08:15 Dose: 180 mg Documented By: Admin: 04/27/24 09:26 Dose: 180 mg Documented By: JOCELIN Fluticasone Propionate (Fluticasone Propionate Na Spr 16 Gm Btl) 1 sprays ZAYRA BID [facility] Stop: 05/26/24 20:59 Last Admin: 04/28/24 08:16 Dose: 1 sprays Documented By: Admin: 04/27/24 21:21 Dose: 1 sprays Documented By: [id number] Admin: 04/27/24 09:26 Dose: 1 sprays Documented By: Admin: 04/26/24 22:06 Dose: 1 sprays Documented By: KEEGAN Folic Acid (Folic Acid 1 Mg Tab) 1 mg PO QAM [facility] Stop: 05/27/24 08:59 Last Admin: 04/28/24 08:15 Dose: 1 mg Documented By: Admin: 04/27/24 09:25 Dose: 1 mg Documented By: JOCELIN Gabapentin (Gabapentin 600 Mg Tab) 600 mg PO BID [facility] Stop: 05/26/24 20:59 Last Admin: 04/28/24 08:14 Dose: 600 mg Documented By: Admin: 04/27/24 21:22 Dose: 600 mg Documented By: [id number] Admin: 04/27/24 09:25 Dose: 600 mg Documented By: Admin: 04/26/24 22:05 Dose: 600 mg Documented By: KEEGAN Heparin Sodium (Porcine) (Heparin (Porcine) 1000 Unit/Ml 10 Ml (Watch Hairspring Assembler Use Only)) Confirm Administered Dose 10,000 units .ROUTE .STK-MED ONE Stop: 04/28/24 13:23 Last Admin: 04/28/24 14:46 Dose: 2,500 units Documented By: SAVANNA Heparin Sodium/Sodium Chloride (Heparin In Nss Infusion 1000 Unit/500 Ml (2 U/Ml) Bag) Confirm Administered Dose 3,000 units IV .STK-MED ONE Stop: 04/28/24 13:24 Last Admin: 04/28/24 14:36 Dose: 3,000 units Documented By: SAVANNA Calcium Gluconate () 1,000 mg in 60 mls @ 240 mls/hr IV NOW STA Stop: 04/26/24 11:16 Last Infusion: 04/26/24 11:48 Dose: Infused Documented By: Admin: 04/26/24 11:29 Dose: 240 mls/hr Documented By: KENNETH Sodium Chloride (Nss) 500 mls @ 50 mls/hr IV .Q10H [facility] Stop: 04/27/24 21:59 Last Infusion: 04/27/24 23:56 Dose: Infused Documented By: Admin: 04/27/24 13:33 Dose: 50 mls/hr Documented By: JOCELIN Ioversol (Optiray 320 125ml) 120 ml IV ONCE ONE Stop: 04/26/24 10:16 Last Admin: 04/26/24 10:15 Dose: 120 ml Documented By: BRADLEY Ioversol (Optiray 350) Confirm Administered Dose 1 ml .ROUTE .STK-MED ONE Stop: 04/28/24 13:24 Last Admin: 04/28/24 14:47 Dose: 30 ml Documented By: SAVANNA Ipratropium [place] (Ipratropium [place] Hfa Inhaler) 1 puffs INH DAILY [facility] Stop: 05/27/24 08:59 Last Admin: 04/28/24 07:31 Dose: 1 puffs Documented By: JAAnnamarie Admin: 04/27/24 07:40 Dose: 1 puffs Documented By: [id number] Lamotrigine (Lamotrigine 100 Mg Tab) 100 mg PO BID [facility]; Protocol Stop: 05/26/24 20:59 Last Admin: 04/28/24 08:15 Dose: 100 mg Documented By: Admin: 04/27/24 21:22 Dose: 100 mg Documented By: [id number] Admin: 04/27/24 09:24 Dose: 100 mg Documented By: FJAnnamarie Admin: 04/26/24 22:06 Dose: 100 mg Documented By: EFK Methylphenidate HCl (Methylphenidate Hcl 5 Mg Tablet) 5 mg PO QPM [facility] Stop: 05/10/24 20:59 Last Admin: 04/27/24 21:20 Dose: 5 mg Documented By: [id number] Admin: 04/26/24 22:07 Dose: Not Given Documented By: EFK Methylphenidate HCl (Methylphenidate Hcl 10 Mg Tablet) 20 mg PO QAM [facility] Stop: 05/12/24 09:44 Last Admin: 04/28/24 11:01 Dose: 20 mg Documented By: MICKIE Midazolam HCl (Midazolam Hcl 1 Mg/Ml 2ml Vial) Confirm Administered Dose 2 mg .ROUTE .STK-MED ONE Stop: 04/28/24 13:23 Last Increment: 04/28/24 14:47 Dose: 1 mg Documented By: SAVANNA Mirtazapine (Mirtazapine Tab 15 Mg Tab) 15 mg PO [facility] Stop: 05/26/24 20:59 Last Admin: 04/27/24 21:22 Dose: 15 mg Documented By: [id number] Admin: 04/26/24 22:05 Dose: 15 mg Documented By: KEEGAN Miscellaneous (Methylphenidate Er 20mg: Order Awaiting Action) 1 each N/A [facility] Stop: 05/27/24 00:00 Last Admin: 04/28/24 15:40 Dose: Not Given Documented By: Admin: 04/28/24 09:17 Dose: Not Given Documented By: Admin: 04/28/24 07:37 Dose: Not Given Documented By: Admin: 04/27/24 16:31 Dose: Not Given Documented By: Admin: 04/27/24 07:51 Dose: Not Given Documented By: Admin: 04/27/24 00:10 Dose: Not Given Documented By: KEEGAN Nicardipine HCl (Nicardipine 2,000 Mcg/20 Ml Syr) Confirm Administered Dose 2,000 mcg .ROUTE .STK-MED ONE Stop: 04/28/24 13:23 Last Admin: 04/28/24 14:36 Dose: 2,000 mcg Documented By: SAVANNA Nitroglycerin/Dextrose (Nitroglycerin/D5w 100mcg/Ml 20ml Syr) Confirm Administered Dose 2,000 mcg .ROUTE .STK-MED ONE Stop: 04/28/24 13:24 Last Admin: 04/28/24 14:47 Dose: Not Given Documented By: SAVANNA Pantoprazole Sodium (Pantoprazole 40 Mg Tab) 40 mg PO [facility] Stop: 05/26/24 20:59 Last Admin: 04/27/24 21:23 Dose: 40 mg Documented By: [id number] Admin: 04/26/24 22:05 Dose: 40 mg Documented By: KEEGAN Sucralfate (Sucralfate 1 Gm Tab) 1 gm PO [facility] Stop: 05/26/24 16:29 Last Admin: 04/28/24 16:10 Dose: 1 gm Documented By: Admin: 04/28/24 12:34 Dose: 1 gm Documented By: Admin: 04/28/24 08:15 Dose: 1 gm Documented By: Admin: 04/27/24 21:22 Dose: 1 gm Documented By: [id number] Admin: 04/27/24 16:47 Dose: 1 gm Documented By: FJAnnamarie Admin: 04/27/24 13:32 Dose: 1 gm Documented By: FJAnnamarie Admin: 04/27/24 09:25 Dose: 1 gm Documented By: Admin: 04/26/24 22:05 Dose: 1 gm Documented By: Admin: 04/26/24 16:30 Dose: 1 gm Documented By: KKS Imaging Data Radiologist's Impression: Head CT 04/26/24 10:05 CT head/brain wo con CLINICAL HISTORY: neuro deficit, acute stroke suspected Technique: Contiguous axial CT images of the head were acquired from the base of the skull to the vertex without intravenous contrast administration. Images were viewed in brain, subdural and bone windows. Automated dose lowering techniques and/or adjustment according to patient size were utilized for this exam. Comparison: None available at the time of this dictation. Findings: The ventricles, basal cisterns, and cerebral sulci are normal. There is no acute intracranial hemorrhage or evidence of acute territorial infarction. Neither mass effect, shift of the midline structures, nor abnormal extra-axial fluid collections are shown. Imaged portions of the paranasal sinuses and mastoid air cells are clear. The orbits appear normal. There are no acute fractures of the calvaria or scalp swelling. Impression: No acute intracranial hemorrhage, no evidence of acute territorial infarction or other acute intracranial disease process. ACT 112: Negative or not required by law. Electronically signed by: Je Atwood M.D. 04/26/2024 10:46 AM Head CTA 04/26/24 10:05 CT angio neck with con, CT angio head w con CLINICAL HISTORY: neuro deficit, acute stroke suspected TECHNIQUE: Contiguous axial CT images of the head were acquired from the base of the skull to the vertex without intravenous contrast administration. CT angiography of the head and neck was performed following intravenous administration of iodinated contrast. Coronal and sagittal MIPS were obtained from the axial data set and were submitted for review. Automated dose lowering techniques and/or adjustment according to patient size were utilized for this examination. All measurements were calculated based on NASCET criteria. CT DOSE: 998.67 mGy.cm Comparison: None available at the time of this dictation. FINDINGS: CT head: There is no acute intracranial hemorrhage or evidence of acute territorial infarction. No shift of the midline structures, mass effect, or extra-axial abnormalities are shown. Biapical emphysema is seen. CTA Neck: The aortic arch and the origins of the innominate, left subclavian, and left common carotid artery are not imaged. There is no significant atherosclerotic plaque in the aortic arch or the origins of the innominate, left common carotid, and left subclavian arteries. The common carotid, external carotid, cervical segments of the internal carotid arteries, and the cervical segments of the vertebral arteries are patent without hemodynamically significant stenosis. The left vertebral artery is dominant. CTA Head: The anterior and posterior cerebral circulations are patent. origin of the bilateral posterior cerebral arteries noted. IMPRESSION: 1. No acute intracranial hemorrhage, evidence of acute territorial infarction, or other acute intracranial disease process. 2. No occlusion, hemodynamically significant stenosis, or dissection in the major cervical arteries. 3. No occlusion, hemodynamically significant stenosis, aneurysm, dissection, or arteriovenous malformation in the major intracranial arteries. Assessment of stenosis of the internal carotid arteries is based on NASCET criteria. ACT 112: Negative or not required by law. Electronically signed by: Je Atwood M.D. 04/26/2024 10:29 AM Neck CTA 04/26/24 10:05 CT angio neck with con, CT angio head w con CLINICAL HISTORY: neuro deficit, acute stroke suspected TECHNIQUE: Contiguous axial CT images of the head were acquired from the base of the skull to the vertex without intravenous contrast administration. CT angiography of the head and neck was performed following intravenous administration of iodinated contrast. Coronal and sagittal MIPS were obtained from the axial data set and were submitted for review. Automated dose lowering techniques and/or adjustment according to patient size were utilized for this examination. All measurements were calculated based on NASCET criteria. CT DOSE: 998.67 mGy.cm Comparison: None available at the time of this dictation. FINDINGS: CT head: There is no acute intracranial hemorrhage or evidence of acute territorial infarction. No shift of the midline structures, mass effect, or extra-axial abnormalities are shown. Biapical emphysema is seen. CTA Neck: The aortic arch and the origins of the innominate, left subclavian, and left common carotid artery are not imaged. There is no significant atherosclerotic plaque in the aortic arch or the origins of the innominate, left common carotid, and left subclavian arteries. The common carotid, external carotid, cervical segments of the internal carotid arteries, and the cervical segments of the vertebral arteries are patent without hemodynamically significant stenosis. The left vertebral artery is dominant. CTA Head: The anterior and posterior cerebral circulations are patent. origin of the bilateral posterior cerebral arteries noted. IMPRESSION: 1. No acute intracranial hemorrhage, evidence of acute territorial infarction, or other acute intracranial disease process. 2. No occlusion, hemodynamically significant stenosis, or dissection in the major cervical arteries. 3. No occlusion, hemodynamically significant stenosis, aneurysm, dissection, or arteriovenous malformation in the major intracranial arteries. Assessment of stenosis of the internal carotid arteries is based on NASCET criteria. ACT 112: Negative or not required by law. Electronically signed by: Je Atwood M.D. 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 Comparison: Comparison is made to chest radiograph 12/20/2023 FINDINGS: No lines and tubes are seen. Calcified aortic knob is seen. The lungs are clear. No evidence of pleural effusion or pneumothorax. IMPRESSION: No acute chest disease. ACT 112: Negative or not required by law. Electronically signed by: Je Atwood M.D. 04/26/2024 10:47 AM Brain MRI 04/26/24 11:02 MR brain wo con CLINICAL HISTORY: stroke eval, aphasia, R facial droop TECHNIQUE: Multiplanar and multisequence MR images of the brain were obtained without intravenous contrast. Comparison: None available at the time of this dictation. FINDINGS: No abnormal restricted diffusion is identified. The white matter is unremarkable. The ventricular system is normal in appearance. No mass is seen. There is no mass effect or midline shift. There is no evidence of acute intraparenchymal hemorrhage. No extra axial fluid collections are seen. The corpus callosum, pituitary gland, and cerebellar tonsils appear grossly unremarkable. Flow voids of the major intracranial arterial vessels are identified. The imaged portions of the paranasal sinuses, mastoid air cells, and orbits are unremarkable. IMPRESSION: No acute abnormalities. ACT 112: Negative or not required by law. Electronically signed by: Je Atwood M.D. 04/26/2024 12:51 PM Discharge Plan Visit Data Chief Complaint: Stroke Alert Stated Complaint: SYNCOPE ED Provider: Ralph Rivas Discharge Problem: Syncope, Nausea and vomiting, Anemia, Difficulty with speech Patient Disposition: Admitted As Inpatient Discharge Instructions Interventions: ED Discharge Assessment Last Done: 04/26/24 15:45 Discharge Problem: Syncope Qualifiers: Syncope type: unspecified Qualified Code(s): R55 - Syncope and collapse Nausea and vomiting Qualifiers: Vomiting type: unspecified Qualified Code(s): R11.2 - Nausea with vomiting, unspecified Anemia Qualifiers: Anemia type: unspecified type Qualified Code(s): D64.9 - Anemia, unspecified
--- NOTE | 2024-04-26 10:31 | CT Scan Report ---
CT angio neck with con, CT angio head w con CLINICAL HISTORY: neuro deficit, acute stroke suspected TECHNIQUE: Contiguous axial CT images of the head were acquired from the base of the skull to the sofía gaby without intravenous contrast administration. CT angiography of the head and neck was performed f ollowing intravenous administration of iodinated contrast. Coronal and sagittal MIPS were obtained fr om the axial data set and were submitted for review. Automated dose lowering techniques and/or adjus tment according to patient size were utilized for this examination. All measurements were calculated based on NASCET criteria. CT DOSE: 998.67 mGy.cm Comparison: None available at the time of this dictation. FINDINGS: CT head: There is no acute intracranial hemorrhage or evidence of acute territorial infarction. No sh ift of the midline structures, mass effect, or extra-axial abnormalities are shown. Biapical emphysema is seen. CTA Neck: The aortic arch and the origins of the innominate, left subclavian, and left common caroti d artery are not imaged. There is no significant atherosclerotic plaque in the aortic arch or the nile gins of the innominate, left common carotid, and left subclavian arteries. The common carotid, exter nal carotid, cervical segments of the internal carotid arteries, and the cervical segments of the sofía tebral arteries are patent without hemodynamically significant stenosis. The left vertebral artery is dominant. CTA Head: The anterior and posterior cerebral circulations are patent. origin of the bilateral posterior cerebral arteries noted. IMPRESSION: 1. No acute intracranial hemorrhage, evidence of acute territorial infarction, or other acute intrac ranial disease process. 2. No occlusion, hemodynamically significant stenosis, or dissection in the major cervical arteries. 3. No occlusion, hemodynamically significant stenosis, aneurysm, dissection, or arteriovenous malfor mation in the major intracranial arteries. Assessment of stenosis of the internal carotid arteries is based on NASCET criteria. ACT 112: Negative or not required by law. Electronically signed by: Je Atwood M.D. 04/26/2024 10:29 AM
[2024-04-26 10:34] LABS: Basophils # (auto) 0.06 K/uL (0.00-0.20); Basophils % (auto) 0.8 %; Eosinophils # (auto) 0.27 K/uL (0.00-0.50); Eosinophils % (auto) 3.7 %; Hematocrit (blood only) 34.2 % (37.0-47.0); Hemoglobin 11.6 g/dl (12.0-16.0); Immature Granulocytes # (auto) 0.02 K/uL (0.01-0.20); Immature Granulocytes % (auto) 0.3 %; Lymphocytes # (auto) 1.81 K/uL (1.20-3.40); Lymphocytes % (auto) 24.6 %; Mean Corpuscular Hemoglobin 31.2 pg (25.0-34.0); Mean Corpuscular Hgb Conc 33.9 g/dL (32.0-36.0); Mean Corpuscular Volume 91.9 fL (80.0-100.0); Mean Platelet Volume 8.4 fL (9.4-12.4); Monocytes # (auto) 0.57 K/uL (0.11-0.59); Monocytes % (auto) 7.7 %; Neutrophils # (auto) 4.64 K/uL (1.40-6.50); Neutrophils % (auto) 62.9 %; Platelet Count 221 K/uL (130-400); RDW Standard Deviation 40.6 fL (36.4-46.3); Red Blood Count 3.72 M/uL (4.20-5.40); White Blood Count 7.37 K/ul (4.8-10.8)
[2024-04-26 10:41] LABS: Partial Thromboplastin Time 27 Seconds (21-31); Prothrombin Time 11.1 Seconds (9.0-12.0)
--- NOTE | 2024-04-26 10:47 | CT Scan Report ---
CT head/brain wo con CLINICAL HISTORY: neuro deficit, acute stroke suspected Technique: Contiguous axial CT images of the head were acquired from the base of the skull to the sofía gaby without intravenous contrast administration. Images were viewed in brain, subdural and bone [facility]. Automated dose lowering techniques and/or adjustment according to patient size were utilized for this exam. Comparison: None available at the time of this dictation. Findings: The ventricles, basal cisterns, and cerebral sulci are normal. There is no acute intracranial hemorrh age or evidence of acute territorial infarction. Neither mass effect, shift of the midline structures , nor abnormal extra-axial fluid collections are shown. Imaged portions of the paranasal sinuses and mastoid air cells are clear. The orbits appear normal. There are no acute fractures of the calvaria or scalp swelling. Impression: No acute intracranial hemorrhage, no evidence of acute territorial infarction or other acute intracra nial disease process. ACT 112: Negative or not required by law. Electronically signed by: Je Atwood M.D. 04/26/2024 10:46 AM
--- NOTE | 2024-04-26 10:48 | XRay Report ---
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 Comparison: Comparison is made to chest radiograph 12/20/2023 FINDINGS: No lines and tubes are seen. Calcified aortic knob is seen. The lungs are clear. No evidence of pleur al effusion or pneumothorax. IMPRESSION: No acute chest disease. ACT 112: Negative or not required by law. Electronically signed by: Je Atwood M.D. 04/26/2024 10:47 AM
[2024-04-26 10:50] LABS: Albumin Globulin Ratio 1.6 (0.9-2); Albumin Level 3.3 gm/dl (3.4-5.0); BUN Creatinine Ratio 19.1 (10-20); Bilirubin,Total 0.3 mg/dl (0.2-1.0); Calcium 8.3 mg/dl (8.6-10.3); Creatinine Clr Calc Pharmacy 61.3 ml/min; Globulin 2.1 gm/dl (2.5-4.0); Magnesium 1.8 mg/dl (1.7-2.4); Potassium 4.2 mmol/L (3.5-5.1); Total Protein 5.4 gm/dl (6.0-8.3)
[2024-04-26 10:56] LABS: Troponin I High Sensitivity 2.5 pg/ml (0-14)
[2024-04-26] MEDS: CALCIUM GLUCONATE 1,000 MG/60 ML BAG IV STA (11:29)
--- NOTE | 2024-04-26 11:49 | History & Physical Report ---
Date of Service April 26, 2024 Assessment & Plan (1) Syncope: Plan: This is a 53-year-old female with past medical history of GERD, regurgitation, bipolar 1, hypertension, COPD who presented to the emergency department on 04/26/2024 with a chief complaint of a syncopal episode. Etiology: stroke vs TIA vs underlying gastroenteritis vs cardiac EKG normal sinus rhythm on admission CBC: Mild anemia with hemoglobin 11.6, WBC without leukocytosis CMP: Mild hyponatremia with sodium of 132, LFTs WNL, renal function stable Chest x-ray negative Head CT negative Head CTA negative Brain MRI negative Last echo 01/07/2023: Calcified mitral valve with moderate mitral regurgitation and 2 eccentric jets. Diastolic dysfunction grade 1. Preserved left regular systolic function with low normal EF of 50 to 55%repeat echo this admission Obtain orthostatic vital signs to rule out orthostatic hypotension Hold anti-hypertensives AM CBC, BMP (2) Nausea and vomiting: Plan: Patient w/ reported episode of vomiting and diarrhea prior to reporting to hospital. No further symptoms at time of admission. Patient does follow with GI outpatient for history of GERD and dysphagia. Continue PPI, Carafate and Pepcid inpatient Phenergan prn for continued symptoms. Clear liquid diet, advance as tolerated. Plan Chronic conditions: Substance abuse d/o: buprenorphine Mental health: Lexapro, aripiprazole, methylphenidate, lamotrigine, mirtazapine COPD: Atrovent Allergic rhinitis: fexofenadine, Flonase Neuropathy: gabapentin Disposition: telemetry Code status: DNR/DNI Updated patient's partner at bedside 04/[address] Prado at time of admission. History of Present Illness Primary Care Provider: Edmundo Banda MD This is a 53-year-old female with past medical history of GERD, regurgitation, bipolar 1, hypertension, COPD who presented to the emergency department on 04/26/2024 with a chief complaint of a syncopal episode. The patient was seen and examined at bedside. Patient's partner was present. Patient reports that around 6 AM this morning she woke up and did not feel well. She states that she then went to lay down on the couch and started to feel very hot. She states she then lost consciousness and when reawoke and she had GI upset. She then went to the bathroom and vomited 1 time and had diarrhea 1 time. Following this she then states that she passed out on the bathroom floor. She states that she does not remember getting herself back in bed. She then states that her partner eventually woke up and found her in a state of confusion, unable to express what was wrong, and tearfulness. She states that this all occurred between the hours of 6 AM to 8 AM this morning. She then states that when they got a ride to the emergency room her symptoms started to resolve. Presently she feels numbness and tingling all over her body. She feels this most prominently on her face. She admits to epigastric abdominal pain. She denies any further episodes of nausea or vomiting since presenting to the ED. She denies any dysphagia. She states that she has been having chest pain for a few days. She has a history of emphysema and notes that her shortness of breath has been worsening. She also admitted to a pressure-like sensation in her head but denied the presence of a headache. She denied fevers or chills. Patient states that she has not used any illicit substances in about 8-1/2 years. She states that she is compliant with her buprenorphine on a daily basis. States that she took all of her morning medications this morning prior to coming to the ED. While in the emergency department, patient underwent a CBC that was present with mild anemia at 11.6. Patient was mildly hyponatremic at 132. LFTs were within normal limits.Patient's head CT, head/neck CTA, and chest x-ray performed in the ED were all negative. Brain MRI currently pending. Allergies Allergy/AdvReac Type Severity Reaction Status Date / Time orange Allergy Severe Difficulty Unverified 04/26/24 11:51 Breathing/Rash tomato Allergy Severe Difficulty Unverified 04/26/24 11:51 Breathing/Rash amoxicillin Allergy Unknown Rash Verified 04/26/24 11:51 buspirone Allergy Unknown Cardiac Verified 04/26/24 11:51 arrest fluoxetine Allergy Unknown Hives Verified 04/26/24 11:51 hydrocodone Allergy Unknown Hives Verified 04/26/24 11:51 paroxetine Allergy Unknown SLEEPING, Verified 04/26/24 11:51 HIVES Penicillins Allergy Unknown HIVE, Verified 04/26/24 11:51 VOMITING Home Medications Medication Instructions Recorded Confirmed Type ferrous sulfate 325 mg (65 mg 325 mg PO QAM 06/24/20 04/26/24 History iron) tablet folic acid 1 mg tablet 1 mg PO QAM #30 tabs 06/24/20 04/26/24 History buprenorphine 8 mg-naloxone 2 mg 1 tab sublingual BID 02/09/22 04/26/24 History sublingual tablet famotidine 20 mg tablet 20 mg PO BID #20 tabs 04/17/22 04/26/24 Rx lamotrigine 100 mg tablet 100 mg PO BID 04/17/22 04/26/24 History Medical Marijuana 1 dose PO UD PRN Pain 11/29/22 04/26/24 History methylphenidate HCl 20 mg 20 mg PO QAM #30 tabs 04/13/24 04/26/24 Rx tablet,extended release methylphenidate HCl 5 mg tablet 5 mg PO QPM #30 tabs 04/13/24 04/26/24 Rx acetaminophen 650 mg 650 mg PO DAILY PRN Pain 04/26/24 04/26/24 History tablet,extended release amlodipine 5 mg tablet 5 mg PO HS 04/26/24 04/26/24 History aripiprazole 10 mg tablet 10 mg PO QAM 04/26/24 04/26/24 History escitalopram oxalate 10 mg tablet 10 mg PO QAM 04/26/24 04/26/24 History fexofenadine 180 mg tablet 180 mg PO QAM 04/26/24 04/26/24 History fluticasone propionate 50 1 spray intranasal BID 04/26/24 04/26/24 History mcg/actuation nasal spray,suspension gabapentin 600 mg tablet 600 mg PO BID 04/26/24 04/26/24 History ipratropium bromide 17 1 inh inhalation DAILY 04/26/24 04/26/24 History mcg/actuation HFA aerosol inhaler (Atrovent HFA) lidocaine HCl 3 % topical cream 1 applic topical DAILY PRN Unknown 04/26/24 04/26/24 History losartan 100 mg tablet 100 mg PO QAM 04/26/24 04/26/24 History mirtazapine 15 mg tablet 15 mg PO HS 04/26/24 04/26/24 History polyethylene glycol 3350 17 17 g PO DAILY 04/26/24 04/26/24 History gram/dose oral powder (Gavilax) sennosides 8.6 mg-docusate sodium 1 tab-cap PO HS 04/26/24 04/26/24 History 50 mg tablet (Stimulant Laxative Plus) sucralfate 1 gram tablet 1 g PO ACHS 04/26/24 04/26/24 History pantoprazole 40 mg tablet,delayed 40 mg PO HS gerd #30 tabs 04/27/24 Rx release (Protonix) Past Med/Surg History Problem List (Updated 04/27/24 @ 11:48 by Yancy Bai PA-C) Mobitz I Mobitz (type) II atrioventricular block Nausea and vomiting Syncope Encounter for pre-operative examination Circadian rhythm sleep disorder, advanced sleep phase type GERD (gastroesophageal reflux disease) Lesion of vocal cord Dysphagia No significant past surgical history Mitral regurgitation mild to moderate Bipolar 1 disorder (Acute) Cataplexy Hypnopompic hallucination Sleep paralysis Hypertension Excessive somnolence disorder COPD (chronic obstructive pulmonary disease) Medical History GERD (gastroesophageal reflux disease) Medical marijuana use History of narcotic addiction CKD (chronic kidney disease) stage 2, GFR 60-89 ml/min Hx-TIA (transient ischemic attack) Hypercholesterolemia Seizures Bipolar disorder Surgical History History of esophagogastroduodenoscopy (EGD) Hx of colonoscopy Hx of rotator cuff surgery History of carpal tunnel release of both wrists Hx of hysterectomy Hx of tubal ligation Family History Family/Other Seizure Social History Smoking Status: Light tobacco smoker Tobacco Type: Cigarettes Age Started Using Tobacco: 10; Cigarettes Per Day: 10; Second Hand Exposure: Yes; Do You Dip or Chew Tobacco: No; Tobacco Cessation Education Requested by Patient: No Hx Alcohol Use: No Hx Substance Use: Yes Last Used Substance: Days (ago) Last Used Substance Other:: daily use; last narcotics use was 2017 Substance Use Type Other:: medical marijuana Preferred Language: Latvian Communication Ability: Effective 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 smile w/o facial droop, patient reported was difficult to smile. Results & Data Results & Data Vital Signs (Past 12 Hours) Vital Signs Temp Pulse Pulse Resp BP BP Pulse Ox 04/26/24 10:30 66 15 140/92 99 04/26/24 10:27 75 04/26/24 10:17 70 16 160/98 H 98 04/26/24 09:57 36.6 C 76 20 124/79 98 O2 Del Method 04/26/24 10:30 Room Air 04/26/24 10:27 04/26/24 10:17 Room Air 04/26/24 09:57 Room Air Supervising Physician Co-Signing Physician Notes I personally saw and examined the patient. I independently reviewed the labs, EKG, imaging, problem list, medication list, past medical history and family history. I verified all robles points and agree with Edelmira Ledbetter PA-C with the following exceptions and/or additions: 53 year old female presents to the ER with generalized weakness, pain, nausea/vomiting, expressive dysphasia, diaphoresis, diarrhea and confusion that started sudden this morning. Still feels she is not back to her baseline. O/E HS RRR, no murmurs, Chest CTAB, Abdo generalized tenderness, no one sided weakness or change in sensation A/P Syncope, nausea and vomiting - MRI brain negative, suspect more likely viral illness and with some nasal congestion, biofire ordered, TTE, monitor on telemetry for arrythmias PG Care Time/CCT Total # of Minutes Spent Total Time Spent with Patient: Total time spent is greater than 50% in coordination of care (as documented) at patient's floor/unit and/or counseling patient: Coding Level of Care Code 56726 INT INP/OBS CARE 3/75MIN Diagnoses Syncope R55 Nausea and vomiting R11.2
--- NOTE | 2024-04-26 12:52 | Magnetic Resonance Report ---
MR brain wo con CLINICAL HISTORY: stroke eval, aphasia, R facial droop TECHNIQUE: Multiplanar and multisequence MR images of the brain were obtained without intravenous con trast. Comparison: None available at the time of this dictation. FINDINGS: No abnormal restricted diffusion is identified. The white matter is unremarkable. The ventricular sys tem is normal in appearance. No mass is seen. There is no mass effect or midline shift. There is no e vidence of acute intraparenchymal hemorrhage. No extra axial fluid collections are seen. The corpus c allosum, pituitary gland, and cerebellar tonsils appear grossly unremarkable. Flow voids of the major intracranial arterial vessels are identified. The imaged portions of the para nasal sinuses, mastoid air cells, and orbits are unremarkable. IMPRESSION: No acute abnormalities. ACT 112: Negative or not required by law. Electronically signed by: Je Atwood M.D. 04/26/2024 12:51 PM
[2024-04-26] MEDS ORDERED: PROMETHAZINE 6.25 MG/50.25 ML BAG IV PRN (16:02)
[2024-04-26] MEDS: SUCRALFATE 1 GM TAB PO SCH (16:30)
[2024-04-26] MEDS: FAMOTIDINE 20 MG TAB PO SCH (22:04)
[2024-04-26] MEDS: PANTOprazole 40 MG TAB PO SCH (22:05)
[2024-04-26] MEDS: GABAPENTIN 600 MG TAB PO SCH (22:05)
[2024-04-26] MEDS: MIRTAZAPINE TAB 15 MG TAB PO SCH (22:05)
[2024-04-26] MEDS: lamoTRIgine 100 MG TAB PO SCH (22:06)
[2024-04-26] MEDS: FLUTICASONE PROPIONATE NA SPR 16 GM BTL NAE SCH (22:06)
[2024-04-26] MEDS: METHYLPHENIDATE HCL 5 MG TABLET PO SCH (22:07)
[2024-04-26] MEDS: BUPRENORPHINE/NALOXONE 8/2 MG TAB SL SCH (22:14)
[2024-04-26] MEDS: ACETAMINOPHEN 325 MG TAB PO PRN (22:17)
--- NOTE | 2024-04-27 06:02 | Electrocardiogram Report ---
Test Reason : Blood Pressure : */* mmHG Vent. Rate : 70 BPM Atrial Rate : 70 BPM P-R Int : 202 ms QRS Dur : 86 ms QT Int : 384 ms P-R-T Axes : 49 84 64 degrees QTcB Int : 414 ms Normal sinus rhythm Normal ECG When compared with ECG of 23-Apr-2022 16:54, No significant change was found Confirmed by Paco Peraza ([id number]) on 04/27/2024 6:01:49 AM Referred By: REFERRED SELF Confirmed By: Paco Peraza
[2024-04-27 06:20] LABS: Hematocrit (blood only) 38.4 % (37.0-47.0); Hemoglobin 13.1 g/dl (12.0-16.0); Mean Corpuscular Hemoglobin 30.8 pg (25.0-34.0); Mean Corpuscular Hgb Conc 34.1 g/dL (32.0-36.0); Mean Corpuscular Volume 90.4 fL (80.0-100.0); Mean Platelet Volume 8.8 fL (9.4-12.4); Platelet Count 250 K/uL (130-400); RDW Standard Deviation 39.6 fL (36.4-46.3); Red Blood Count 4.25 M/uL (4.20-5.40); White Blood Count 5.67 K/ul (4.8-10.8)
[2024-04-27 07:00] LABS: BUN Creatinine Ratio 17.1 (10-20); Calcium 8.8 mg/dl (8.6-10.3); Creatinine Clr Calc Pharmacy 66.6 ml/min; Potassium 3.9 mmol/L (3.5-5.1)
[2024-04-27 07:15] LABS: Thyroid Stimulating Hormone 1.55 uIu/ml (0.300-4.500)
[2024-04-27] MEDS: IPRATROPIUM BROMIDE HFA INHALER INH SCH (07:40)
--- NOTE | 2024-04-27 07:59 | Hospitalist Progress Note ---
Date of Service April 27, 2024 Assessment & Plan (1) Syncope: Plan: 53-year-old female with past medical history of GERD, regurgitation, bipolar 1, hypertension, COPD, NARCOLEPSY, presented to ER 04/26 with reports of syncopal episode. Reports prodromal sx of SOB/room closing in on her EKG w/ NSR on admission, appears Mobitz I vs II. Troponin neg 2.3 on admission CXR negative Head CT no acute CVA, Head/neck CTA negative for any significant stenosis/abn MRI brain NEGATIVE for acute CVA Biofire negative Orthostatic VS ordered but not obtained this morning - did appear a little dehydrated, review appears HR elevation 20 w/ standing + - 500cc NS @ 50cc/hr for now, encourage PO hydration (she likes tea) - Losartan/amlodipine on hold for now, possible needs reduction in her losartan pending serial BPs ECHO - no shunt, noting mild mitral regurgitation now appearing mild but otherwise no significant change. EF 60-65%, no wma or LVH, normal RVSP B12 checked/borderline - PO supplementation started Hx narcolepsy but reported different and typically w/ those spells just falls asleep quickly/no prodrome Telemetry with Mobitz I -- added lyme which is negative. - -Reports family hx heart block/pacemaker, notably she did report prodrome prior to episode which occurred x 2 times coming into her house and felt like room closing in and will remain on telemetry/cards consulted *notable on home med list medical marijuana and will need to inquire if recent use related to above as could most certainly have exacerbated issue with dehydration as well PT/OT consults placed, fall precautions ordered and will await cardiology consult/therapy evals to ensure safe to return home. Monitor (2) Nausea and vomiting: Plan: Patient w/ reported episode of vomiting and diarrhea prior to reporting to hospital. No further symptoms at time of admission and ? prodromal sx w/ heart block and will continue to monitor on telemetry IMPROVED -- will advance to fulls and can advance further as tolerated but remains on PPI, carafate, pepcid at this time. Hx dysphagia but tolerating diet without issue/CXR negative Antiemetics as needed (3) Mobitz I: Plan: patient reports strong family hx heart block/need for pacemaker. Lyme checked/negative ECHO pending given syncope above, cardiology consulted continues [facility]. Plan Chronic conditions: Substance abuse d/o: buprenorphine Bipolar/depression: Lexapro, aripiprazole, methylphenidate, lamotrigine, mirtazapine COPD: Atrovent, CXR negative and remains on room air. Will add incentive spirometer while inpatient Allergic rhinitis: fexofenadine, Flonase Neuropathy: gabapentin continued , not new med/recent adjustment Dispo: continued inpatient stay on telemetry, cards consult pending. IVF/hydration encouraged and zoila monitor orthostatics/therapy evals. Resume amlodipine/losartan in AM pending serial BPs Admission and Anticipated Discharge Date Admission Date: April 26, 2024 Subjective Margareth l this morinng, resting in bed. Feeling better than admission but still some dizziness, orthostatics to be obtained as not already. Discussed presentation, she notes passing out twice, once coming into the house and once going into the bathroom. Reports feeling like the the room was closing in on her/prodromal symptoms. Notable has grandparents/aunts with a history of heartblock/need for pacemaker. Discussed ECHO, not yet read, but also consultation for cardiology for eval. Possible event monitor at sd. Of note, hx narcolepsy but reports with that it's just falling asleep quickly and no prodrome and this feels different Also checking carotid doppler, strong hx PVD/PAD in family, possible faint bruit on the right and will monitor. Hydration encouraged (likes tea), IVF to be provided if +orthostatics. Physical Exam 2 Physical Exam: General: 53 yo female, looks older than stated age, sitting up in bed, NAD/reports feeling better than admission HEENT: head atraumatic, normocephalic, mm slightly dry, trachea midline, raspy voice Resp: even/unlabored, no wheezing/rales, on room air CV: regular rate/mobitz on telemetry no pauses, rates as low as 39 this morning around 731am, no pitting edema, no calf tenderness, pulses present GI: +BS, soft/NT no chacon MSK/Neuro: nonfocal, able to follow commands, answering questions appropriately, not confused Psych: AOx3, cooperative with exam Results & Data Results & Data Vital Signs (Past 12 Hours) Vital Signs Temp Pulse Pulse Pulse Resp BP Pulse Ox 04/27/24 07:42 86 15 96 01/13/25 07:38 48 L 04/27/24 07:31 36.4 C L 60 18 128/80 97 04/27/24 04:02 36.4 C L 51 L 16 105/62 95 04/26/24 22:00 58 L 04/26/24 20:13 36.4 C L 64 16 132/86 97 O2 Del Method FiO2 04/27/24 07:42 Room Air 21 04/27/24 07:38 04/27/24 07:31 Room Air 04/27/24 04:02 Room Air 04/26/24 22:00 04/26/24 20:13 Room Air Laboratory Results 04/27/24 05:26 04/27/24 05:26 B12 303 TSH 1.55 Biofire negative Lyme negative Mag 1.8 on 04/[address] 04/26/24 10:05 CT head/brain wo con CLINICAL HISTORY: neuro deficit, acute stroke suspected Technique: Contiguous axial CT images of the head were acquired from the base of the skull to the vertex without intravenous contrast administration. Images were viewed in brain, subdural and bone windows. Automated dose lowering techniques and/or adjustment according to patient size were utilized for this exam. Comparison: None available at the time of this dictation. Findings: The ventricles, basal cisterns, and cerebral sulci are normal. There is no acute intracranial hemorrhage or evidence of acute territorial infarction. Neither mass effect, shift of the midline structures, nor abnormal extra-axial fluid collections are shown. Imaged portions of the paranasal sinuses and mastoid air cells are clear. The orbits appear normal. There are no acute fractures of the calvaria or scalp swelling. Impression: No acute intracranial hemorrhage, no evidence of acute territorial infarction or other acute intracranial disease process. ACT 112: Negative or not required by law. Electronically signed by: Je Atwood M.D. 04/26/2024 10:46 AM Head CTA 04/26/24 10:05 CT angio neck with con, CT angio head w con CLINICAL HISTORY: neuro deficit, acute stroke suspected TECHNIQUE: Contiguous axial CT images of the head were acquired from the base of the skull to the vertex without intravenous contrast administration. CT angiography of the head and neck was performed following intravenous administration of iodinated contrast. Coronal and sagittal MIPS were obtained from the axial data set and were submitted for review. Automated dose lowering techniques and/or adjustment according to patient size were utilized for this examination. All measurements were calculated based on NASCET criteria. CT DOSE: 998.67 mGy.cm Comparison: None available at the time of this dictation. FINDINGS: CT head: There is no acute intracranial hemorrhage or evidence of acute territorial infarction. No shift of the midline structures, mass effect, or extra-axial abnormalities are shown. Biapical emphysema is seen. CTA Neck: The aortic arch and the origins of the innominate, left subclavian, and left common carotid artery are not imaged. There is no significant atherosclerotic plaque in the aortic arch or the origins of the innominate, left common carotid, and left subclavian arteries. The common carotid, external carotid, cervical segments of the internal carotid arteries, and the cervical segments of the vertebral arteries are patent without hemodynamically significant stenosis. The left vertebral artery is dominant. CTA Head: The anterior and posterior cerebral circulations are patent. origin of the bilateral posterior cerebral arteries noted. IMPRESSION: 1. No acute intracranial hemorrhage, evidence of acute territorial infarction, or other acute intracranial disease process. 2. No occlusion, hemodynamically significant stenosis, or dissection in the major cervical arteries. 3. No occlusion, hemodynamically significant stenosis, aneurysm, dissection, or arteriovenous malformation in the major intracranial arteries. Assessment of stenosis of the internal carotid arteries is based on NASCET criteria. ACT 112: Negative or not required by law. Electronically signed by: Je Atwood M.D. 04/26/2024 10:29 AM Neck CTA 04/26/24 10:05 CT angio neck with con, CT angio head w con CLINICAL HISTORY: neuro deficit, acute stroke suspected TECHNIQUE: Contiguous axial CT images of the head were acquired from the base of the skull to the vertex without intravenous contrast administration. CT angiography of the head and neck was performed following intravenous administration of iodinated contrast. Coronal and sagittal MIPS were obtained from the axial data set and were submitted for review. Automated dose lowering techniques and/or adjustment according to patient size were utilized for this examination. All measurements were calculated based on NASCET criteria. CT DOSE: 998.67 mGy.cm Comparison: None available at the time of this dictation. FINDINGS: CT head: There is no acute intracranial hemorrhage or evidence of acute territorial infarction. No shift of the midline structures, mass effect, or extra-axial abnormalities are shown. Biapical emphysema is seen. CTA Neck: The aortic arch and the origins of the innominate, left subclavian, and left common carotid artery are not imaged. There is no significant atherosclerotic plaque in the aortic arch or the origins of the innominate, left common carotid, and left subclavian arteries. The common carotid, external carotid, cervical segments of the internal carotid arteries, and the cervical segments of the vertebral arteries are patent without hemodynamically significant stenosis. The left vertebral artery is dominant. CTA Head: The anterior and posterior cerebral circulations are patent. origin of the bilateral posterior cerebral arteries noted. IMPRESSION: 1. No acute intracranial hemorrhage, evidence of acute territorial infarction, or other acute intracranial disease process. 2. No occlusion, hemodynamically significant stenosis, or dissection in the major cervical arteries. 3. No occlusion, hemodynamically significant stenosis, aneurysm, dissection, or arteriovenous malformation in the major intracranial arteries. Assessment of stenosis of the internal carotid arteries is based on NASCET criteria. ACT 112: Negative or not required by law. Electronically signed by: Je Atwood M.D. 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 Comparison: Comparison is made to chest radiograph 12/20/2023 FINDINGS: No lines and tubes are seen. Calcified aortic knob is seen. The lungs are clear. No evidence of pleural effusion or pneumothorax. IMPRESSION: No acute chest disease. ACT 112: Negative or not required by law. Electronically signed by: Je Atwood M.D. 04/26/2024 10:47 AM Brain MRI 04/26/24 11:02 MR brain wo con CLINICAL HISTORY: stroke eval, aphasia, R facial droop TECHNIQUE: Multiplanar and multisequence MR images of the brain were obtained without intravenous contrast. Comparison: None available at the time of this dictation. FINDINGS: No abnormal restricted diffusion is identified. The white matter is unremarkable. The ventricular system is normal in appearance. No mass is seen. There is no mass effect or midline shift. There is no evidence of acute intraparenchymal hemorrhage. No extra axial fluid collections are seen. The corpus callosum, pituitary gland, and cerebellar tonsils appear grossly unremarkable. Flow voids of the major intracranial arterial vessels are identified. The imaged portions of the paranasal sinuses, mastoid air cells, and orbits are unremarkable. IMPRESSION: No acute abnormalities. ACT 112: Negative or not required by law. Electronically signed by: Je Atwood M.D. 04/26/2024 12:51 PM ECHOCARDIOGRAM Normal LV ventricular size and systolic function. EF 60-65%. No regional wall motion abnormalities. No left ventricular hypertrophy. Mild mitral regurgitation Normal estimated RVSP No right to left interatrial shunt noted following agitated saline administration Compared to study on 01/05/2023, mitral regurgitation appears mild PG Care Time/CCT Total # of Minutes Spent Total Time Spent with Patient: Total time spent is greater than 50% in coordination of care (as documented) at patient's floor/unit and/or counseling patient: Coding Level of Care Code 25921 SUB INP/OBS CARE 3/50MIN Diagnoses Syncope R55 Nausea and vomiting R11.2 Felipe Parker I44.1
[2024-04-27] MEDS: ESCITALOPRAM OXALATE 10 MG TAB PO SCH (09:25)
[2024-04-27] MEDS: FOLIC ACID 1 MG TAB PO SCH (09:25)
[2024-04-27] MEDS: ARIPiprazole 10 MG TAB PO SCH (09:25)
[2024-04-27] MEDS: FEXOFENADINE HCL 180 MG TAB PO SCH (09:26)
[2024-04-27 10:39] LABS: Adenovirus PCR Not Detected (NotDetected); Bordetella parapertussis PCR Not Detected (NotDetected); Bordetella pertussis PCR Not Detected (NotDetected); Chlamydia pneumoniae PCR Not Detected (NotDetected); Coronavirus 229E PCR Not Detected (NotDetected); Coronavirus CoV-2 (COVID19)PCR Not Detected (NotDetected); Coronavirus HKU1 PCR Not Detected (NotDetected); Coronavirus NL63 PCR Not Detected (NotDetected); Coronavirus OC43PCR Not Detected (NotDetected); Human Metapneumovirus PCR Not Detected (NotDetected); Influenza A PCR Not Detected (NotDetected); Influenza B PCR Not Detected (NotDetected); Mycoplasma pneumoniae PCR Not Detected (NotDetected); Parainfluenza Virus 1 PCR Not Detected (NotDetected); Parainfluenza Virus 2 PCR Not Detected (NotDetected); Parainfluenza Virus 3 PCR Not Detected (NotDetected); Parainfluenza Virus 4 PCR Not Detected (NotDetected); Respiratory Syncytial VirusPCR Not Detected (NotDetected); Rhinovirus/Enterovirus PCR Not Detected (NotDetected)
--- NOTE | 2024-04-27 11:39 | XCELERA ---
[id number] \\[id number]
--- NOTE | 2024-04-27 11:43 | Cardiology Consultation ---
Date of Consultation April 27, 2024 Assessment & Plan (1) Syncope: (2) Crescendo angina: (3) Mobitz I: (4) Hypertension: (5) Hypercholesterolemia: Plan ASSESSMENT/PLAN: 1. Syncope: Etiology uncertain. Felipe 1 on telemetry but no significant pause. Cannot exclude more advanced AV block. Can also not exclude that her sleep disorder is playing a role in her loss of consciousness episodes. Her sleep disorder outpatient visit reports that she has had seizure disorder as well. Recommend 30-day event monitor as an outpatient to see if there is any heart rate/AV block/arrhythmia correlate with these episodes. 2. Angina: She describes crescendo angina and has multiple risk factors for CAD. Recommend ischemic evaluation. She states that she has not been able to tolerate stress testing in the past and given her description of worsening angina, coronary angiography recommended. Risks and benefits were discussed with her in detail and she wishes to proceed. N.p.o. after midnight. Start aspirin. 3. Tobacco abuse: Smoking cessation. 4. Hypertension: Blood pressure normotensive to mildly hypertensive. Given her presentation and Felipe 1, no beta-patricia or other AV asif blocking agents. Can continue ARB. 5. Mobitz 1: No significant pauses on telemetry. Can avoid AV asif blocking agents for now given her presentation and concern for syncope versus loss of consciousness related to her sleep disorders. Continue with telemetry. 6. Dyslipidemia: Will arrange for a lipid profile in the morning. If found to have CAD and/or elevated 10-year cardiovascular risk based on lipid profile, consider statin therapy. 7. Disposition: Cardiology will continue to follow. Plan of care discussed with primary hospitalist, Yancy Bai PA-C. Highly complex medical issues. Thank you for allowing me to participate in the care of your patient. Please call for any other questions or concerns. Sincerely, Jonathan Peraza M.D. History of Present Illness Reason for Consultation: Syncope Requesting Physician: Yancy Bai PA-C Attending Physician: Abeba Smith MD History of Present Illness Ms. Story is a pleasant 53-year-old female with a history significant for hypertension, dyslipidemia, tobacco abuse, cataplexy, sleep paralysis, excessive somnolence disorder, bipolar disorder, COPD. She has been seen in the outpatient setting by Dr. Hampton. She was admitted on 04/26/2024 after syncopal event and chest pain. She initially stated that she has been having syncope for the past 4 months or so. She then later stated that she has been having syncope for at least 3 years. She first notes chest discomfort which is a left-sided sharp pain which then is quickly followed by lightheadedness or dizziness and near syncope. On 04/25/2024, the day prior to presentation, she recalls feeling the symptoms while smoking a cigarette on the porch. She went inside and had a syncopal event. She woke up and then vomited and went into the restroom before having another syncopal event. She apparently was noted to have slurring of her speech, difficulty finding her words, became very emotional and disoriented. She states that the chest pain always tends to occur first and that the chest pain is triggered by physical exertion and/or emotional stress. She states that over the past few weeks, the chest pain has been worsening and more frequent. There is radiation of the discomfort down her left arm and also it is a ccompanied by diaphoresis and shortness of breath. She denies hematochezia, hematuria, or other bleeding. She has had dark stools but takes iron. She is very concerned about ischemic heart disease given her family history. She has not had any chest discomfort or syncope while hospitalized. She denies palpitations. 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 Review of systems: As above. Family history: Father at 49 with [place]. Social history: She started smoking at the age of 10 and had smoked up to 1.5 packs/day. She is currently smoking 3 to 4 cigarettes/day. No alcohol. She denies illicit drugs but has had issues with addiction to pain medications in the past, reporting that she has been sober for 9 years. She has 3 children, 2 daughters and a son. The 2 daughters occasionally talk to her but her son is no longer part of her life. She lives at home with her female partner. She is unaccompanied. Allergies Allergy/AdvReac Type Severity Reaction Status Date / Time orange Allergy Severe Difficulty Unverified 04/26/24 11:51 Breathing/Rash tomato Allergy Severe Difficulty Unverified 04/26/24 11:51 Breathing/Rash amoxicillin Allergy Unknown Rash Verified 04/26/24 11:51 buspirone Allergy Unknown Cardiac Verified 04/26/24 11:51 arrest fluoxetine Allergy Unknown Hives Verified 04/26/24 11:51 hydrocodone Allergy Unknown Hives Verified 04/26/24 11:51 paroxetine Allergy Unknown SLEEPING, Verified 04/26/24 11:51 HIVES Penicillins Allergy Unknown HIVE, Verified 04/26/24 11:51 VOMITING Home Medications Medication Instructions Recorded Confirmed Type ferrous sulfate 325 mg (65 mg 325 mg PO QAM 06/24/20 04/26/24 History iron) tablet folic acid 1 mg tablet 1 mg PO QAM #30 tabs 06/24/20 04/26/24 History buprenorphine 8 mg-naloxone 2 mg 1 tab sublingual BID 02/09/22 04/26/24 History sublingual tablet famotidine 20 mg tablet 20 mg PO BID #20 tabs 04/17/22 04/26/24 Rx lamotrigine 100 mg tablet 100 mg PO BID 04/17/22 04/26/24 History Medical Marijuana 1 dose PO UD PRN Pain 11/29/22 04/26/24 History methylphenidate HCl 20 mg 20 mg PO QAM #30 tabs 04/13/24 04/26/24 Rx tablet,extended release methylphenidate HCl 5 mg tablet 5 mg PO QPM #30 tabs 04/13/24 04/26/24 Rx acetaminophen 650 mg 650 mg PO DAILY PRN Pain 04/26/24 04/26/24 History tablet,extended release amlodipine 5 mg tablet 5 mg PO HS 04/26/24 04/26/24 History aripiprazole 10 mg tablet 10 mg PO QAM 04/26/24 04/26/24 History escitalopram oxalate 10 mg tablet 10 mg PO QAM 04/26/24 04/26/24 History fexofenadine 180 mg tablet 180 mg PO QAM 04/26/24 04/26/24 History fluticasone propionate 50 1 spray intranasal BID 04/26/24 04/26/24 History mcg/actuation nasal spray,suspension gabapentin 600 mg tablet 600 mg PO BID 04/26/24 04/26/24 History ipratropium bromide 17 1 inh inhalation DAILY 04/26/24 04/26/24 History mcg/actuation HFA aerosol inhaler (Atrovent HFA) lidocaine HCl 3 % topical cream 1 applic topical DAILY PRN Unknown 04/26/24 04/26/24 History losartan 100 mg tablet 100 mg PO QAM 04/26/24 04/26/24 History mirtazapine 15 mg tablet 15 mg PO HS 04/26/24 04/26/24 History polyethylene glycol 3350 17 17 g PO DAILY 04/26/24 04/26/24 History gram/dose oral powder (Gavilax) sennosides 8.6 mg-docusate sodium 1 tab-cap PO HS 04/26/24 04/26/24 History 50 mg tablet (Stimulant Laxative Plus) sucralfate 1 gram tablet 1 g PO ACHS 04/26/24 04/26/24 History pantoprazole 40 mg tablet,delayed 40 mg PO HS gerd #30 tabs 04/27/24 Rx release (Protonix) Problem List (Updated 04/27/24 @ 19:05 by Paco Peraza MD) Crescendo angina Mobitz I Mobitz (type) II atrioventricular block Nausea and vomiting Syncope Encounter for pre-operative examination Circadian rhythm sleep disorder, advanced sleep phase type GERD (gastroesophageal reflux disease) Lesion of vocal cord Dysphagia No significant past surgical history Mitral regurgitation mild to moderate Bipolar 1 disorder (Acute) Cataplexy Hypnopompic hallucination Sleep paralysis Hypertension Excessive somnolence disorder COPD (chronic obstructive pulmonary disease) Patient History Medical History GERD (gastroesophageal reflux disease) Medical marijuana use History of narcotic addiction clean since 2016 CKD (chronic kidney disease) stage 2, GFR 60-89 ml/min Hx-TIA (transient ischemic attack) states passed out, suspected TIA- ~2017, no deficits Hypercholesterolemia Seizures last seizure -2019; follows w/ Dr Coleman Bipolar disorder Surgical History History of esophagogastroduodenoscopy (EGD) Hx of colonoscopy Hx of rotator cuff surgery History of carpal tunnel release of both wrists Hx of hysterectomy Hx of tubal ligation Family History Family/Other Seizure Social History Smoking Status: Light tobacco smoker Tobacco Type: Cigarettes Age Started Using Tobacco: 10; Cigarettes Per Day: 10; Second Hand Exposure: Yes; Do You Dip or Chew Tobacco: No; Tobacco Cessation Education Requested by Patient: No Hx Alcohol Use: No Hx Substance Use: Yes Last Used Substance: Days (ago) Last Used Substance Other:: daily use; last narcotics use was 2017 Substance Use Type Other:: medical marijuana Preferred Language: British Communication Ability: Effective 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 Alert and oriented. HEENT: Anicteric sclera. Neck: No JVD. No bruits. Normal carotid upstrokes bilaterally. Cardiac: Regular. Normal S1-S2. No murmurs, rubs, or gallops. Pulmonary: Decreased breath sounds, but otherwise clear to auscultation bilaterally without wheezes, rales, or rhonchi. Abdomen: Soft, nontender, nondistended, with normoactive bowel sounds. No bruits noted. Extremities: 2+ radial pulses bilaterally. 2+ posterior tibialis pulses bilaterally. No edema or cyanosis. Results & Data Vital Signs (Past 12 Hours) Vital Signs Temp Pulse Pulse Pulse Resp BP Pulse Ox 04/27/24 11:26 04/27/24 07:42 86 15 96 04/27/24 07:38 48 L 04/27/24 07:31 36.4 C L 60 18 128/80 97 04/27/24 04:02 36.4 C L 51 L 16 105/62 95 Pulse Ox O2 Del Method O2 Del Method FiO2 04/27/24 11:26 96 Room Air 04/27/24 07:42 Room Air 21 04/27/24 07:38 04/27/24 07:31 Room Air 04/27/24 04:02 Room Air Laboratory Results Laboratory Results - last 24 hr 04/26/24 04/27/24 04/27/24 10:17 05:26 Unknown WBC 5.67 RBC 4.25 Hgb 13.1 Hct 38.4 MCV 90.4 MCH 30.8 MCHC 34.1 RDW Std Deviation 39.6 RDW Coeff of [place]acia 12.0 Plt Count 250 MPV 8.8 L Sodium 139 Potassium 3.9 Chloride 105 Carbon Dioxide 29 Anion Gap 5 BUN 14 Creatinine 0.82 Est Cr Clr Drug Dosing 66.6 eGFR 85.48 BUN/Creatinine Ratio 17.1 Glucose 96 Calcium 8.8 Vitamin B12 303 TSH 1.550 Adenovirus (PCR) Not Detected B. pertussis DNA (PCR) Not Detected B.parapertussis DNA PCR Not Detected Lyme Disease Screen Negative C. pneumoniae DNA (PCR) Not Detected Coronavirus OC43 (PCR) Not Detected Coronavirus HKU1 (PCR) Not Detected Coronavirus 229E (PCR) Not Detected SARS-CoV-2 (PCR) Not Detected Coronavirus NL63 (PCR) Not Detected Human Metapneumovir PCR Not Detected Influenza Type A (PCR) Not Detected Influenza Type B (PCR) Not Detected M. pneumoniae (PCR) Not Detected Parainfluenza 1 (PCR) Not Detected Parainfluenza 2 (PCR) Not Detected Parainfluenza 3 (PCR) Not Detected Parainfluenza 4 (PCR) Not Detected RSV (PCR) Not Detected Entero/Rhino (PCR) Not Detected Diagnostic Findings ECHO 04/27/2024: 1. Normal left ventricular size and systolic function. EF 60-65%. No regional wall motion abnormalities. No left ventricular hypertrophy. 2. Mild mitral regurgitation. 3. Normal estimated right ventricular systolic pressure. 4. No [id number] interatrial shunt noted following agitated saline administration. 5. Compared to prior study on 01/07/2023, mitral regurgitation appears mild. Telemetry personally reviewed: Sinus rhythm with Mobitz 1. No significant pauses of 3 seconds or more. ECG personally reviewed 04/26/2024: Sinus rhythm 70 bpm. Labs reviewed and notable for normal magnesium, normal renal function, normal potassium, normal high-sensitivity troponin, normal TSH, nonelevated transaminase levels, normal blood counts, negative Lyme. Brain MRI 04/26/2024: No acute abnormalities per radiology. Neck CTA 04/26/2024: No significant stenosis within the major cervical arteries, major intracranial arteries. No hemorrhage. Chest x-ray 04/26/2024: No acute disease per radiology. History and physical report reviewed. Medications Administered Current Inpatient Medications Acetaminophen (Acetaminophen 325 Mg Tab) 650 mg PO DAILY PRN PRN Reason: Pain Last Admin: 04/26/24 22:17 Dose: 650 mg Aripiprazole (Aripiprazole 10 Mg Tab) 10 mg PO QAM [facility] Stop: 05/27/24 08:59 Last Admin: 04/27/24 09:25 Dose: 10 mg Buprenorphine/Naloxone (Buprenorphine/Naloxone 8/2 Mg Tab) 1 tab SL BID [facility] Stop: 05/26/24 20:59 Last Admin: 04/27/24 09:26 Dose: 1 tab Cyanocobalamin (Cyanocobalamin (B-12) 500 Mcg Tablet) 500 mcg PO QAM [facility] Stop: 05/28/24 08:59 Escitalopram Oxalate (Escitalopram Oxalate 10 Mg Tab) [facility] [place]: 05/27/24 08:59 Last Admin: 04/27/24 09:25 Dose: 10 mg Famotidine (Famotidine 20 Mg Tab) 20 mg PO BID [facility] Stop: 05/26/24 20:59 Last Admin: 04/27/24 09:25 Dose: 20 mg Fexofenadine HCl (Fexofenadine Hcl 180 Mg Tab) [facility] [place]: 05/27/24 08:59 Last Admin: 04/27/24 09:26 Dose: 180 mg Fluticasone Propionate (Fluticasone Propionate Na Spr 16 Gm Btl) 1 sprays ZAYRA BID [facility] Stop: 05/26/24 20:59 Last Admin: 04/27/24 09:26 Dose: 1 sprays Folic Acid (Folic Acid 1 Mg Tab) [facility]: 05/27/24 08:59 Last Admin: 04/27/24 09:25 Dose: 1 mg Gabapentin (Gabapentin 600 Mg Tab) 600 mg PO BID [facility] Stop: 05/26/24 20:59 Last Admin: 04/27/24 09:25 Dose: 600 mg Promethazine HCl (Phenergan) 6.25 mg in 50.25 mls @ 201 mls/hr IV Q6H PRN PRN Reason: Nausea And Vomiting Stop: 05/26/24 16:01 Ipratropium [place] (Ipratropium [place] Hfa Inhaler) 1 puffs INH DAILY [facility] Stop: 05/27/24 08:59 Last Admin: 04/27/24 07:40 Dose: 1 puffs Lamotrigine (Lamotrigine 100 Mg Tab) 100 mg PO BID [facility]; Protocol Stop: 05/26/24 20:59 Last Admin: 04/27/24 09:24 Dose: 100 mg Methylphenidate HCl (Methylphenidate Hcl 5 Mg Tablet) 5 mg PO QPM [facility] Stop: 05/10/24 20:59 Last Admin: 04/26/24 22:07 Dose: Not Given Mirtazapine (Mirtazapine Tab 15 Mg Tab) 15 mg PO HS [facility] Stop: 05/26/24 20:59 Last Admin: 04/26/24 22:05 Dose: 15 mg Miscellaneous (Methylphenidate Er 20mg: Order Awaiting Action) 1 each N/A QS [facility] Stop: 05/27/24 00:00 Last Admin: 04/27/24 07:51 Dose: Not Given Pantoprazole Sodium (Pantoprazole 40 Mg Tab) 40 mg PO HS [facility] Stop: 05/26/24 20:59 Last Admin: 04/26/24 22:05 Dose: 40 mg Sucralfate (Sucralfate 1 Gm Tab) 1 gm PO ACHS [facility] Stop: 05/26/24 16:29 Last Admin: 04/27/24 09:25 Dose: 1 gm PG Care Time/CCT Total # of Minutes Spent Total Time Spent with Patient: Total time spent is greater than 50% in coordination of care (as documented) at patient's floor/unit and/or counseling patient: Coding Level of Care Code 49231 INT INP/OBS CARE 3/75MIN Diagnoses Syncope R55 Crescendo angina I20.0 Mobitz I I44.1 Hypertension I10 Hypercholesterolemia E78.00
[2024-04-27] MEDS: SODIUM CHLORIDE 0.9% 500 ML IV SCH (13:33)
[2024-04-27 18:17] LABS: Appearance Urine Clear (Clear); Bilirubin Urine Negative (Negative); Blood Urine Negative (Negative); Color Urine Yellow; Glucose Urine UA Negative (Negative); Ketones Urine Negative (Negative); Leukocyte Esterase Urine Negative (Negative); Nitrite Urine Negative (Negative); Protein Urine Negative (Negative); Specific Gravity Urine 1.009 (1.000-1.030); Urobilinogen Urine Negative (Negative); pH Urine 6.5 (4.5-7.5)
[2024-04-27] MEDS: ASPIRIN 325 MG ECTAB PO ONE (21:22)
--- NOTE | 2024-04-27 21:27 | Electrocardiogram Report ---
Test Reason : Blood Pressure : */* mmHG Vent. Rate : 61 BPM Atrial Rate : 61 BPM P-R Int : 224 ms QRS Dur : 90 ms QT Int : 422 ms P-R-T Axes : 61 82 66 degrees QTcB Int : 424 ms Sinus rhythm with 1st degree A-V block Early repolarization When compared with ECG of 26-Apr-2024 10:22, No significant change was found Confirmed by Paco Peraza ([id number]) on 04/27/2024 9:27:08 PM Referred By: REFERRED SELF Confirmed By: Paco Peraza
[2024-04-28 07:11] LABS: BUN Creatinine Ratio 9.4 (10-20); Magnesium 1.8 mg/dl (1.7-2.4); Potassium 4.1 mmol/L (3.5-5.1)
[2024-04-28] MEDS: CYANOCOBALAMIN (B-12) 500 MCG TABLET PO SCH (08:15)
[2024-04-28] MEDS: ASPIRIN 81 MG ECTAB PO SCH (08:15)
[2024-04-28] MEDS: METHYLPHENIDATE HCL 10 MG TABLET PO SCH (11:01)
--- NOTE | 2024-04-28 14:16 | Pre Anesthesia Assessment ---
Date of Service April 28, 2024 Pre Sedation Assessment Vital Signs Temp Pulse Pulse Resp BP Pulse Ox O2 Del Method 04/28/24 13:45 61 16 132/90 98 Room Air 04/28/24 11:57 37.0 C 59 L 17 126/75 95 Room Air 04/28/24 07:38 36.6 C 54 L 18 147/90 H 98 Room Air 04/28/24 07:31 68 16 99 Room Air 04/28/24 07:30 56 L 04/28/24 07:30 Room Air 04/28/24 02:29 36.6 C 61 16 134/81 97 Room Air 04/27/24 23:35 58 L 04/27/24 23:24 36.4 C L 58 L 16 121/77 96 Room Air 04/27/24 22:20 Room Air 04/27/24 20:34 36.4 C L 56 L 20 118/76 96 Room Air 04/27/24 16:26 66 Cardiovascular + regular rate Respiratory normal respiratory effort, lungs clear to auscultation Pre-Sedation Airway Assessment Smoking Status: Light tobacco smoker Mallampati Class: II ASA: ASA3 NPO Status Date of Last Intake of Fluids: 04/28/24 Time of Last Intake of Fluids: 09:00 Last Oral Intake of Fluids Comment: sips with meds Date of Last Intake of Solid Food: 04/27/24 Time of Last Intake of Solid Foods: 18:00 Procedure Planning Contraindications for Sedation: none Current Medications Reviewed: Yes Notes The planned sedation has been discussed with the patient. Informed Consent was obtained. I have identified the patient, determined the appropriateness of sedation and have assessed the patient immediately prior to the procedure. All medicine(s) and interventions are by my order.
[2024-04-28] MEDS: niCARdipine 2,000 MCG/20 ML SYR ONE (14:36)
[2024-04-28] MEDS: HEPARIN (PORCINE) 1000 UNIT/ML 10 ML (CATH LAB USE ONLY) ONE (14:46)
[2024-04-28] MEDS: OPTIRAY 350 ONE (14:47)
[2024-04-28] MEDS: MIDAZOLAM HCL 1 MG/ML 2ML VIAL ONE (14:47)
[2024-04-28] MEDS: NITROGLYCERIN/D5W 100MCG/ML 20ML SYR ONE (14:47)
[2024-04-28] MEDS: fentaNYL citrate PF 100 MCG/2 ML VIAL ONE (14:47)
--- NOTE | 2024-04-28 14:59 | Cardiac Catheterization ---
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 Cardiac Status Clinical evaluation leading to the procedure CAD Presenation: Unstable angina Anginal Classification: CCS III Heart Failure: No Cardiogenic Shock within 24 Hours: No Cardiac Arrest within 24 Hours: No Imaging Studies Past 6 Months: Yes Stress Studies Past 6 Months: No Coronary Anatomy Dominant: Right Diagnostic Physicians Name: Paco Peraza MD Status: Elective Closure Device Percutaneous Entry Location: Radial Closure Device: Radial Band Recommendations: Management Recommendatons Cardiac Cath Procedure Full Procedure Date April 28, 2024 Pre-Procedure Diagnosis Pre-Procedure Diagnosis: Angina AUC Score AUC Score: 7 Post-Procedure Diagnosis Post-Procedure Diagnosis: Normal Coronary Arteries Procedure(s) Performed Procedure(s) Performed: Coronary Angiography and Left Heart Cath Supervisor Glycerin Paco Peraza MD Truck Spotter(s) Carmencita Estimated Blood Loss Estimated Blood Loss: < 20 ml Medication(s) Medication(s): Fentanyl, Heparin, Lidocaine 1%, Nicardipine and Versed Summary of Findings Procedures: 1. Coronary angiography 2. Left heart catheterization 3. Moderate sedation Indication: Ms. Story is a pleasant 53-year-old female with a history significant for tobacco abuse, hypertension, dyslipidemia, COPD, Mobitz 1 who presented with symptoms concerning for crescendo angina and syncope. Coronary angiography: 1. Left main: No significant CAD. 2. Left anterior descending: No significant CAD within the LAD and diagonal vessel. 3. Circumflex: Circumflex gives rise to large OM1 and medium caliber OM 2. No significant CAD within the circumflex system. 4. Right coronary artery: RCA is dominant. No significant CAD within the RCA, PL, PDA. Left heart catheterization: 1. Left ventriculography was not performed. 2. No aortic stenosis. 3. LVEDP 16 mmHg Moderate sedation: 1. Sedation start time: 2:33 PM 2. Sedation end time: 2:47 PM Impression: 1. No significant CAD. 2. Noncardiac chest pain. 3. No aortic stenosis. 4. Mildly elevated LVEDP. Plan: 1. Continue risk factor modification. 2. Noncardiac chest pain evaluation by primary hospitalist service. Hemodynamics Rest Ao:: 162/78 Final Ao: 166/81 LV: 156/9/16 Recommendations Recommendations: Management Recommendatons Specimens Specimens: None Radiation Exposure (mGy) 126 mGy. Fluoro time 2.2 min. Contrast (mls) 30 ml Procedural Complication(s) None Disposition PCU I attest to the content of the Intraoperative Record and any orders documented therein. Any exceptions are noted below. [facility] Card Cath Procedure Codes Cardiac Catheterization Procedure 1: Cardiovascular Cath Procedures: 69243 Coronaries and LHC (+/-LV) Moderate Sedation Procedure 1: Sedation/Anesthesia: 18902 Mod Sedation by the same physician;Init15 Min Child Age 5 & Up PG Care Time/CCT Total # of Minutes Spent Total Time Spent with Patient: Total time spent is greater than 50% in coordination of care (as documented) at patient's floor/unit and/or counseling patient:
--- NOTE | 2024-04-28 15:05 | Post Anesthesia Assessment ---
Date of Service April 28, 2024 Post Sedation Assessment Vital Signs Temp Pulse Pulse Resp BP Pulse Ox O2 Del Method 04/28/24 15:02 64 14 155/89 H 98 Room Air 04/28/24 13:45 61 16 132/90 98 Room Air 04/28/24 11:57 37.0 C 59 L 17 126/75 95 Room Air 04/28/24 07:38 36.6 C 54 L 18 147/90 H 98 Room Air 04/28/24 07:31 68 16 99 Room Air 04/28/24 07:30 56 L 04/28/24 07:30 Room Air 04/28/24 02:29 36.6 C 61 16 134/81 97 Room Air 04/27/24 23:35 58 L 04/27/24 23:24 36.4 C L 58 L 16 121/77 96 Room Air 04/27/24 22:20 Room Air 04/27/24 20:34 36.4 C L 56 L 20 118/76 96 Room Air 04/27/24 16:26 66 Recovery Score Activity: Moves 4 extremities Respiration: Deep Breath/Cough Circulation: +/-20% PreAnes Value Consciousness: Fully Awake Oxygen Saturation: > 92% On Room Air Post Anesthesia Score: 10 Discharge Sedation Level of Care: Fast Track Phase II Post Sedation Plan On clinical assessment, the patient appears to have tolerated the sedation without complications. Patient is recovering as anticipated. Patient will continue to be monitored by nursing and may be discharged when sed ation discharge criteria are met per below protocol. Upon Completions of procedure up to 15 minutes continue every 5 minute vital signs and the P.A.R. score; then discharge to a Phase I or Fast Track to Phase II per the following guidelines: * Discharge Patient to appropriate Phase II area if PAR is 8 or greater or return to pre- procedure baseline. The post - procedure orders will be as directed. * If PAR score is less than 8 or not return to pre-procedure baseline then patient will follow Phase I monitoring till PAR is reached for Phase II. The Phase I may be done in procedure room or may call to secure a Phase I area. * If naloxone or flumazenil are used for reversal, hold in Phase I for continued monitoring from when last reversal dose was given for a minimum of 60 minutes or longer pending the nurse and/or physician discretion of patient condition before discharge to Phase II. Please call the Sedation Physician to re-evaluate and complete post-note for discharge to Phase II area. Do NOT discharge from procedure sedation or Phase 1 until post- sedation evaluation note is complete by procedure /sedation MD Sedation Discharge Instructions to be given to the patient at discharge to home.
[2024-04-28 15:35] VITALS: TEMP 98.2
[2024-04-28 16:44] VITALS: PULSE 57; RESP 18; O2SAT 96
[2024-04-28 17:01] VITALS: BP 153/81
--- NOTE | 2024-04-28 17:11 | Cardiology Progress Note ---
Date of Service April 28, 2024 Assessment & Plan (1) Syncope: (2) Crescendo angina: (3) Mobitz I: (4) Hypertension: (5) Hypercholesterolemia: Plan ASSESSMENT/PLAN: 1. Syncope: Etiology uncertain. Felipe Franklin on telemetry but no significant pause. Cannot exclude more advanced AV block. Can also not exclude that her sleep disorder is playing a role in her loss of consciousness episodes. Her sleep disorder outpatient visit reports that she has had seizure disorder as well. Recommend 30-day event monitor as an outpatient to see if there is any heart rate/AV block/arrhythmia correlate with these episodes. Cardiology outpatient office was notified to arrange for a 30-day event monitor. She has reported that syncope has been occurring intermittently, chronically for years. 2. Chest pain: Chest pain was concerning for crescendo angina based on her description. Fortunately, no significant CAD. Chest pain appears to be noncardiac. Will defer workup for her noncardiac chest pain to hospitalist service and PCP. Aspirin no longer necessary from a cardiology perspective. 3. Tobacco abuse: Smoking cessation recommended. 4. Hypertension: Blood pressure normotensive this morning and hypertensive this afternoon. Given her presentation and Prabhuitz Rigoberto, no beta-patricia or other AV asif blocking agents. Resume ARB. 5. Felipe Franklin: No significant pause on telemetry. Avoid AV asif blocking agents for now given her presentation and concern for syncope versus loss of consciousness related to her sleep disorders. 6. Dyslipidemia: Lipids can be followed and managed in the outpatient setting. Fortunately, no CAD. 7. Disposition: She can be discharged home from a cardiology perspective. 30- day event monitor pending through the cardiology office. Have requested a 6 week follow-up with Dr. Hampton so that the event monitor will have been completed by the time she follows up. Cardiac catheterization findings were also discussed with her partner and friend at the bedside. Patient care communicated with primary hospitalist, Dr. Mazariegos. Admission and Anticipated Discharge Date Admission Date: April 26, 2024 Subjective Patient has continued to have exertional chest discomfort here but also chest discomfort even laying in bed if she repositions herself. She feels short of breath with the chest pain. She denies palpitations, syncope, near syncope, edema, or bleeding. She underwent cardiac catheterization today and tolerated the procedure well. Physical Exam Physical Exam: Gen.: No acute distress. Alert and oriented. HEENT: Anicteric sclera. Neck: No JVD. Cardiac: Regular. Normal S1-S2. No murmurs, rubs, or gallops. Pulmonary: Decreased breath sounds, but otherwise clear to auscultation bilaterally without wheezes, rales, or rhonchi. Abdomen: Soft, nontender, nondistended, with normoactive bowel sounds. No bruits noted. Extremities: 2+ radial pulses bilaterally. 2+ posterior tibialis pulses bilaterally. No edema. No cyanosis. Results & Data Vital Signs (Past 12 Hours) Vital Signs Temp Pulse Pulse Resp BP BP Pulse Ox 04/28/24 17:00 36.8 C 57 L 18 155/85 H 153/81 H 96 04/28/24 16:32 57 L 18 155/85 H 96 04/28/24 16:32 69 04/28/24 16:16 63 16 162/96 H 97 04/28/24 16:01 59 L 18 177/106 H 98 04/28/24 15:47 66 16 161/84 H 97 04/28/24 15:34 36.8 C 63 16 146/82 H 97 04/28/24 15:11 60 14 167/103 H 98 04/28/24 15:02 64 14 155/89 H 98 04/28/24 13:45 61 16 132/90 98 04/28/24 11:57 37.0 C 59 L 17 126/75 95 04/28/24 07:38 36.6 C 54 L 18 147/90 H 98 04/28/24 07:31 68 16 99 04/28/24 07:30 56 L 04/28/24 07:30 O2 Del Method 04/28/24 17:00 04/28/24 16:32 Room Air 04/28/24 16:32 04/28/24 16:16 Room Air 04/28/24 16:01 Room Air 04/28/24 15:47 Room Air 04/28/24 15:34 Room Air 04/28/24 15:11 Room Air 04/28/24 15:02 Room Air 04/28/24 13:45 Room Air 04/28/24 11:57 Room Air 04/28/24 07:38 Room Air 04/28/24 07:31 Room Air 04/28/24 07:30 04/28/24 07:30 Room Air Laboratory Results Laboratory Results - last 24 hr 04/27/24 04/28/24 Unknown 06:05 Sodium 140 Potassium 4.1 Chloride 104 Carbon Dioxide 34 H Anion Gap 2 L BUN 9 Creatinine 0.96 Est Cr Clr Drug Dosing 58.0 eGFR 70.75 BUN/Creatinine Ratio 9.4 L Glucose 94 Calcium 9.0 Magnesium 1.8 Urine Color Yellow Urine Appearance Clear Urine pH 6.5 Ur Specific [place] 1.009 Urine Protein Negative Urine Glucose (UA) Negative Urine Ketones Negative Urine Blood Negative Urine Nitrite Negative Urine Bilirubin Negative Urine Urobilinogen Negative Ur Leukocyte Esterase Negative Diagnostic Findings Telemetry personally reviewed: Sinus rhythm with occasional Mobitz 1. No significant pauses. Cardiac cath 04/28/2024: Coronary angiography: 1. Left main: No significant CAD. 2. Left anterior descending: No significant CAD within the LAD and diagonal vessel. 3. Circumflex: Circumflex gives rise to large OM1 and medium caliber OM 2. No significant CAD within the circumflex system. 4. Right coronary artery: RCA is dominant. No significant CAD within the RCA, PL, PDA. Left heart catheterization: 1. Left ventriculography was not performed. 2. No aortic stenosis. 3. LVEDP 16 mmHg Labs reviewed and notable for normal potassium, normal magnesium, normal renal function. Medications Administered Current Inpatient Medications Acetaminophen (Acetaminophen 325 Mg Tab) 650 mg PO DAILY PRN PRN Reason: Pain Last Admin: 04/27/24 21:21 Dose: 650 mg Aripiprazole (Aripiprazole 10 Mg Tab) 10 mg PO [facility] Stop: 05/27/24 08:59 Last Admin: 04/28/24 08:15 Dose: 10 mg Aspirin (Aspirin 81 Mg Ectab) 81 mg PO [facility] Stop: 05/28/24 08:59 Last Admin: 04/28/24 08:15 Dose: 81 mg Buprenorphine/Naloxone (Buprenorphine/Naloxone 8/2 Mg Tab) 1 tab SL BID [facility] Stop: 05/26/24 20:59 Last Admin: 04/28/24 09:15 Dose: 1 tab Cyanocobalamin (Cyanocobalamin (B-12) 500 Mcg Tablet) 500 mcg PO [facility] Stop: 05/28/24 08:59 Last Admin: 04/28/24 08:15 Dose: 500 mcg Escitalopram Oxalate (Escitalopram Oxalate 10 Mg Tab) 10 mg PO [facility] Stop: 05/27/24 08:59 Last Admin: 04/28/24 08:15 Dose: 10 mg Famotidine (Famotidine 20 Mg Tab) 20 mg PO BID [facility] Stop: 05/26/24 20:59 Last Admin: 04/28/24 08:15 Dose: 20 mg Fexofenadine HCl (Fexofenadine Hcl 180 Mg Tab) 180 mg PO QAM [facility] Stop: 05/27/24 08:59 Last Admin: 04/28/24 08:15 Dose: 180 mg Fluticasone Propionate (Fluticasone Propionate Na Spr 16 Gm Btl) 1 sprays ZAYRA BID [facility] Stop: 05/26/24 20:59 Last Admin: 04/28/24 08:16 Dose: 1 sprays Folic Acid (Folic Acid 1 Mg Tab) 1 mg PO QAM [facility] Stop: 05/27/24 08:59 Last Admin: 04/28/24 08:15 Dose: 1 mg Gabapentin (Gabapentin 600 Mg Tab) 600 mg PO BID [facility] Stop: 05/26/24 20:59 Last Admin: 04/28/24 08:14 Dose: 600 mg Promethazine HCl (Phenergan) 6.25 mg in 50.25 mls @ 201 mls/hr IV Q6H PRN PRN Reason: Nausea And Vomiting Stop: 05/26/24 16:01 Ipratropium Tatum (Ipratropium Tatum Hfa Inhaler) 1 puffs INH DAILY [facility] Stop: 05/27/24 08:59 Last Admin: 04/28/24 07:31 Dose: 1 puffs Lamotrigine (Lamotrigine 100 Mg Tab) 100 mg PO BID [facility]; Protocol Stop: 05/26/24 20:59 Last Admin: 04/28/24 08:15 Dose: 100 mg Methylphenidate HCl (Methylphenidate Hcl 5 Mg Tablet) 5 mg PO QPM [facility] Stop: 05/10/24 20:59 Last Admin: 04/27/24 21:20 Dose: 5 mg Methylphenidate HCl (Methylphenidate Hcl 10 Mg Tablet) 20 mg PO QAM [facility] Stop: 05/12/24 09:44 Last Admin: 04/28/24 11:01 Dose: 20 mg Mirtazapine (Mirtazapine Tab 15 Mg Tab) 15 mg PO HS [facility] Stop: 05/26/24 20:59 Last Admin: 04/27/24 21:22 Dose: 15 mg Miscellaneous (Methylphenidate Er 20mg: Order Awaiting Action) 1 each N/A QS [facility] Stop: 05/27/24 00:00 Last Admin: 04/28/24 15:40 Dose: Not Given Pantoprazole Sodium (Pantoprazole 40 Mg Tab) 40 mg PO HS [facility] Stop: 05/26/24 20:59 Last Admin: 04/27/24 21:23 Dose: 40 mg Sucralfate (Sucralfate 1 Gm Tab) 1 gm PO ACHS [facility] Stop: 05/26/24 16:29 Last Admin: 04/28/24 16:10 Dose: 1 gm PG Care Time/CCT Total # of Minutes Spent Total Time Spent with Patient: Total time spent is greater than 50% in coordination of care (as documented) at patient's floor/unit and/or counseling patient: Coding Level of Care Code 06978 SUB INP/OBS CARE 3/50MIN Diagnoses Syncope R55 Crescendo angina I20.0 Mobitz I I44.1 Hypertension I10 Hypercholesterolemia E78.00
--- NOTE | 2024-04-28 20:26 | Discharge Summary ---
Discharge Summary Date of Service April 28, 2024 Principal Dx & Hospital Course #1 = Principal Diagnosis (1) Syncope: This is a 53-year-old female with past medical history of GERD, regurgitation, bipolar 1, hypertension, COPD who presented to the emergency department on 04/26/2024 with a chief complaint of a syncopal episode. Etiology: stroke vs TIA vs underlying gastroenteritis vs cardiac EKG normal sinus rhythm on admission CBC: Mild anemia with hemoglobin 11.6, WBC without leukocytosis CMP: Mild hyponatremia with sodium of 132, LFTs WNL, renal function stable Chest x-ray negative Head CT negative Head CTA negative Brain MRI negative Last echo 01/07/2023: Calcified mitral valve with moderate mitral regurgitation and 2 eccentric jets. Diastolic dysfunction grade 1. Preserved left regular systolic function with low normal EF of 50 to 55%repeat echo this admission Obtain orthostatic vital signs to rule out orthostatic hypotension Hold anti-hypertensives AM CBC, BMP (2) Nausea and vomiting: Patient w/ reported episode of vomiting and diarrhea prior to reporting to hospital. No further symptoms at time of admission. Patient does follow with GI outpatient for history of GERD and dysphagia. Continue PPI, Carafate and Pepcid inpatient Phenergan prn for continued symptoms. Clear liquid diet, advance as tolerated. Plan Chronic conditions: Substance abuse d/o: buprenorphine Mental health: Lexapro, aripiprazole, methylphenidate, lamotrigine, mirtazapine COPD: Atrovent Allergic rhinitis: fexofenadine, Flonase Neuropathy: gabapentin Disposition: telemetry Code status: DNR/DNI Updated patient's partner at bedside 04/[address] Prado at time of admission. Admission HPI Per Admitting Provider This is a 53-year-old female with past medical history of GERD, regurgitation, bipolar 1, hypertension, COPD who presented to the emergency department on 04/26/2024 with a chief complaint of a syncopal episode. The patient was seen and examined at bedside. Patient's partner was present. Patient reports that around 6 AM this morning she woke up and did not feel well. She states that she then went to lay down on the couch and started to feel very hot. She states she then lost consciousness and when reawoke and she had GI upset. She then went to the bathroom and vomited 1 time and had diarrhea 1 time. Following this she then states that she passed out on the bathroom floor. She states that she does not remember getting herself back in bed. She then states that her partner eventually woke up and found her in a state of confusion, unable to express what was wrong, and tearfulness. She states that this all occurred between the hours of 6 AM to 8 AM this morning. She then states that when they got a ride to the emergency room her symptoms started to resolve. Presently she feels numbness and tingling all over her body. She feels this most prominently on her face. She admits to epigastric abdominal pain. She denies any further episodes of nausea or vomiting since presenting to the ED. She denies any dysphagia. She states that she has been having chest pain for a few days. She has a history of emphysema and notes that her shortness of breath has been worsening. She also admitted to a pressure-like sensation in her head but denied the presence of a headache. She denied fevers or chills. Patient states that she has not used any illicit substances in about 8-1/2 years. She states that she is compliant with her buprenorphine on a daily basis. States that she took all of her morning medications this morning prior to coming to the ED. While in the emergency department, patient underwent a CBC that was present with mild anemia at 11.6. Patient was mildly hyponatremic at 132. LFTs were within normal limits.Patient's head CT, head/neck CTA, and chest x-ray performed in the ED were all negative. Brain MRI currently pending. Discharge Exam General: 53 yo female, looks older than stated age, sitting up in bed, NAD/reports feeling better than admission HEENT: head atraumatic, normocephalic, mm slightly dry, trachea midline, raspy voice Resp: even/unlabored, no wheezing/rales, on room air CV: regular rate/mobitz on telemetry no pauses, rates as low as 39 this morning around 731am, no pitting edema, no calf tenderness, pulses present GI: +BS, soft/NT no chacon MSK/Neuro: nonfocal, able to follow commands, answering questions appropriately, not confused Psych: AOx3, cooperative with exam Discharge Plan Discharge Items Patient Disposition: Home - Self-Care Reason For Visit: SYNCOPE Discharge Diagnosis: Syncope, unclear etiology Activity: Per Instructions section Non-emergency contact: Primary Care Provider and Cooler Deliverer Call non-emergency contact if: you have any medication questions and your symptoms worsen Follow-up/Referrals: Julien Hampton MD [Physician] - (Follow-up as directed.) Edmundo Banda MD [Primary Care Provider] - (patient will make Follow-up appt in 1 week) Diet: Regular Addtl Attending Provider Instructions: Carol, You were admitted to the hospital after a syncopal episode. You had an extensive workup to determine an underlying cause for the syncope, however this workup has been ultimately negative. Head/neck CTA, head CT, brain MRI all negative for acute stroke or abnormalities. Echocardiogram noted mild mitral regurgitation but otherwise had no significant change. You had a cardiac catheterization which showed no evidence of coronary artery disease. Upon discharge from the hospital: * Follow the instructions regarding your cardiac catheterization listed below. * Continue taking aspirin 81 mg daily. This was started during this hospitalization. This is available [id number] (OTC), so no prescription is required. * Continue taking vitamin B12 supplementation daily. This was started during this hospitalization. This has been sent to your [facility] on [address]. * Follow-up with Dr. Hampton in cardiology as directed. * Follow-up with your PCP in 1 week. Please return to the hospital if you experience any of the following: Further episodes of syncope, lightheadedness, dizziness, shortness of breath, chest pain, heart palpitations, persistent nausea with vomiting, or any other symptoms concerning for you. ACTIVITY RECOMMENDATIONS: Excess manipulation of the wrist should be avoided for the next 24-48 hours. * No lifting over 2 pounds (approximately a 1/2 gallon of milk) with the utilized arm for 24 hours. * No strenuous activity such as bowling or tennis for 3 days. * Keep the site of the procedure covered with a bandage for 24 hours. *You may shower the day after the procedure. Do not take a tub bath or submerge the puncture site in water for the next 3 days. *Do not operate any motorized equipment for 3 days. SPECIAL CARE INSTRUCTIONS: The site may be slightly bruised and sore following your procedure. Should any of the following occur, contact the DrZoe who performed your procedure. 1. Redness/inflammation, swelling, chills, or fever, or colored drainage at procedure site within 3-7 days after your procedure. 2. Coldness, discoloration, ongoing numbness, severe pain, or swelling. Expect mild tingling of hand and tenderness at the puncture site for up to three days. If this persists beyond three days, or other symptoms develop, notify the Dr. who performed your procedure. BLEEDING: If the procedure site on your wrist begins to bleed, do not panic 1. Place 1 or 2 fingers firmly just slightly above the insertion site to stop the bleeding. You may be able to feel your pulse as you hold pressure. 2. Lift your finger after 5 minutes to see if the bleeding has stopped. 3. Once the bleeding has stopped, gently wipe the wrist area clean with a bandage. * If the bleeding from your wrist does not stop after 10 minutes, or if there is a large amount of bleeding or spurting, call 911 (do not drive yourself to the hospital). SKIN IRRITATION: * You may experience some redness and/or swelling in the area where radiation was administered. If any skin irritation occurs, please contact your family physician. FOLLOW UP VISIT: Keep any scheduled doctor appointments. Pending Studies at Discharge: No Stand-Alone Forms: My [facility] [email or web address], Smoking Cessation Medications and DC Order Prescriptions: New aspirin 81 mg Tablet,Delayed Release (Dr/Ec) 81 mg PO QAM Qty: 30 0RF cyanocobalamin (vitamin B-12) 500 mcg Tablet 500 mcg PO QAM Qty: 30 0RF Continued methylphenidate HCl 5 mg tablet 5 mg PO QPM Qty: 30 0RF methylphenidate HCl 20 mg tablet extended release 20 mg PO QAM Qty: 30 0RF pantoprazole [Protonix] 40 mg tablet,delayed release (DR/EC) 40 mg PO HS Qty: 30 0RF ferrous sulfate 325 mg (65 mg iron) tablet 325 mg PO QAM folic acid 1 mg tablet 1 mg PO QAM Qty: 30 buprenorphine-naloxone 8-2 mg tablet, sublingual 1 tab SL BID lamotrigine 100 mg tablet 100 mg PO BID famotidine 20 mg tablet 20 mg PO BID Qty: 20 0RF Medical Marijuana 1 dose PO UD PRN (Reason: Pain) gabapentin 600 mg tablet 600 mg PO BID sucralfate 1 gram tablet 1 g PO ACHS sennosides-docusate sodium [Stimulant Laxative Plus] 8.6-50 mg tablet 1 tab-cap PO HS fexofenadine 180 mg tablet 180 mg PO QAM amlodipine 5 mg tablet 5 mg PO HS acetaminophen 650 mg tablet extended release 650 mg PO DAILY PRN (Reason: Pain) lidocaine HCl 3 % cream 1 applic topical DAILY PRN (Reason: Unknown) mirtazapine 15 mg tablet 15 mg PO HS polyethylene glycol 3350 [Gavilax] 17 gram/dose powder 17 g PO DAILY losartan 100 mg tablet 100 mg PO QAM fluticasone propionate 50 mcg/actuation spray,suspension 1 spray INTRANASAL BID escitalopram oxalate 10 mg tablet 10 mg PO QAM aripiprazole 10 mg tablet 10 mg PO QAM Atrovent HFA 17 mcg/actuation HFA aerosol inhaler 1 inh INHALATION DAILY Discharge Orders: Discharge Order (Routine); Ordered 04/28/24 Ordered By: Abeba Mensah Admission Data Admit Date/Time: 04/26/24 11:26 Attending Provider: Wiliam Mazariegos Admit Provider: Wiliam Prado Primary Care Provider: Edmundo Banda Other Providers: Wiliam Prado; Paco Peraza Other Interventions: Discharge Summary Assessment (RN) Last Done: 04/28/24 17:00 Hospital Stay Data Consultations 04/26/24 11:31 ED Decision to Admit Stat 04/27/24 08:36 Consult Cardiology Routine Procedures Performed Operation Date: 04/28/24 12:00 Actual Procedures p Cineradiography w/Routine Exam - Paco Peraza MD s Cath, Left with Cors and Vent - Paco Peraza MD Diagnostic Imagining Performed 04/26/24 10:05 CT angio head w con Stat CT angio neck with con Stat CT head/brain wo con Stat 04/26/24 11:02 MR brain wo con Stat 04/28/24 14:15 CL Cath Imgs for PACS use only Routine Pending Results Patient Have Any Pending Studies at Discharge: No Discharge Instructions Given to Patient (Per Discharging Provider) Carol, You were admitted to the hospital after a syncopal episode. You had an extensive workup to determine an underlying cause for the syncope, however this workup has been ultimately negative. Head/neck CTA, head CT, brain MRI all negative for acute stroke or abnormalities. Echocardiogram noted mild mitral regurgitation but otherwise had no significant change. You had a cardiac catheterization which showed no evidence of coronary artery disease. Upon discharge from the hospital: * Follow the instructions regarding your cardiac catheterization listed below. * Continue taking aspirin 81 mg daily. This was started during this hospitalization. This is available [id number] (OTC), so no prescription is required. * Continue taking vitamin B12 supplementation daily. This was started during this hospitalization. This has been sent to your [facility] pharmacy on [address] * Follow-up with Dr. Hampton in cardiology as directed. * Follow-up with your PCP in 1 week. Please return to the hospital if you experience any of the following: Further episodes of syncope, lightheadedness, dizziness, shortness of breath, chest pain, heart palpitations, persistent nausea with vomiting, or any other symptoms concerning for you. ACTIVITY RECOMMENDATIONS: Excess manipulation of the wrist should be avoided for the next 24-48 hours. * No lifting over 2 pounds (approximately a 1/2 gallon of milk) with the utilized arm for 24 hours. * No strenuous activity such as bowling or tennis for 3 days. * Keep the site of the procedure covered with a bandage for 24 hours. *You may shower the day after the procedure. Do not take a tub bath or submerge the puncture site in water for the next 3 days. *Do not operate any motorized equipment for 3 days. SPECIAL CARE INSTRUCTIONS: The site may be slightly bruised and sore following your procedure. Should any of the following occur, contact the Dr. who performed your procedure. 1. Redness/inflammation, swelling, chills, or fever, or colored drainage at procedure site within 3-7 days after your procedure. 2. Coldness, discoloration, ongoing numbness, severe pain, or swelling. Expect mild tingling of hand and tenderness at the puncture site for up to three days. If this persists beyond three days, or other symptoms develop, notify the Dr. who performed your procedure. BLEEDING: If the procedure site on your wrist begins to bleed, do not panic 1. Place 1 or 2 fingers firmly just slightly above the insertion site to stop the bleeding. You may be able to feel your pulse as you hold pressure. 2. Lift your finger after 5 minutes to see if the bleeding has stopped. 3. Once the bleeding has stopped, gently wipe the wrist area clean with a bandage. * If the bleeding from your wrist does not stop after 10 minutes, or if there is a large amount of bleeding or spurting, call 911 (do not drive yourself to the hosp ital). SKIN IRRITATION: * You may experience some redness and/or swelling in the area where radiation was administered. If any skin irritation occurs, please contact your family physician. FOLLOW UP VISIT: Keep any scheduled doctor appointments. Total Time Total Time Spent Total Time Spent (In Minutes): Greater than 30 minutes spent completing this discharge process including direct patient care, medication reconciliation, documentation, review of labs and images, and coordination of care. Coding Diagnoses Syncope R55 Nausea and vomiting R11.2
== END 2024-04-28 17:44 | disposition home or self-care (01) | DRG 287 ==
LOC: ED 09:48 → INTOOBSV 11:26 → 2W 11:26 → SUATTDRO 11:26 → 2W 15:45 → 2S 04-27 22:08